=== PATIENT | female | born 1940 | race Caucasian/White ===

== ENCOUNTER 2019-03-09 00:12 | Inpatient (IN) | payer MEDICARE, BC ==
[2019-03-09] MEDS ORDERED: SODIUM CHLORIDE 3%(HYPERTONIC) 500 ML IV SCH (00:30)
--- NOTE | 2019-03-09 00:32 | ED ---
Seizure HPI - General Chief Complaint: Seizure Stated Complaint: Seizure Time Seen by Provider: 03/09/19 00:27 Source: patient Limitations: no limitations - History of Present Illness Initial Comments: Marisol is an 78-year-old female who is transferred to our facility from outside [facility] for further management of onset seizures due to hyponatremia. Per the family the patient had some dental work on Sunday of this week. She was given some narcotic pain medications. Since that time she has not been eating or drinking well she felt like the necrotic sore making her very n auseated and she was still having some dental discomfort. Family reports that they were concerned that she was getting dehydrated Sunday morning she began acting bizarrely. Her convinced her after 3 hours of discussion to go to the emergency department for evaluation. Upon arrival at the emergency department the patient was very disoriented and confused. Lab values at that point revealed that the patient had a sodium of 108. She has no history of low sodium or any kidney problems in the past. While at the outside emergency Department patient was noted to have an episode of tonic-clonic jerking. This resolved spontaneously. Patient was initiated on 3% normal saline at 30 mil liliters per hour and transferred to our facility for further evaluation. - Related Data Allergies Allergy/AdvReac Type Severity Reaction Status Date / Time No Known Allergies Allergy Verified 03/09/19 01:52 Review of Systems ROS Statement: Those systems with pertinent positive or pertinent negative responses have been documented in the HPI. ROS Other: All systems not noted in ROS Statement are negative. Past Medical History Additional Past Medical History / Comment(s): UNKNOwn patient is not a good Historian Additional Past Surgical History / Comment(s): UNknown Smoking Status: Unknown if ever smoked Past Alcohol Use History: None Reported Past Drug Use History: None Reported General Exam - General Exam Comments Initial Comments: Physical Exam GENERAL: Chronically ill-appearing elderly female appears dehydrated altered HENT: Normocephalic, Atraumatic. EYES: PERRL, EOMI PULMONARY: Unlabored respirations CARDIOVASCULAR: RRR ABDOMEN: Soft and nontender with normal bowel sounds. SKIN: Dry : Normal external genitalia Gregory catheter in place NEUROLOGIC: Alert and oriented 0, moaning, did have some focal shaking of the right arm and staring spells concerning for seizure-like activity MUSCULOSKELETAL: atrophy PSYCHIATRIC: Unable to assess Limitations: no limitations Course Vital Signs 03/09/19 03/09/19 03/09/19 00:22 00:41 00:50 Temperature Pulse Rate 68 71 Respiratory 16 Rate Blood Pressure 123/79 137/90 O2 Sat by Pulse 94 L Oximetry 03/09/19 03/09/19 03/09/19 01:10 01:20 01:40 Temperature Pulse Rate 67 75 73 Respiratory Rate Blood Pressure 109/66 91/63 120/71 O2 Sat by Pulse 98 Oximetry 03/09/19 03/09/19 03/09/19 01:50 02:01 02:10 Temperature 98.0 F Pulse Rate 79 85 74 Respiratory 18 Rate Blood Pressure 123/72 127/74 118/69 O2 Sat by Pulse 85 L 95 95 Oximetry 03/09/19 03/09/19 03/09/19 02:20 02:40 02:50 Temperature 98.6 F Pulse Rate 69 65 64 Respiratory 16 Rate Blood Pressure 119/72 113/69 110/71 O2 Sat by Pulse 97 100 100 Oximetry 03/09/19 03/09/19 03:10 03:20 Temperature Pulse Rate 70 Respiratory 16 Rate Blood Pressure 105/69 105/69 O2 Sat by Pulse 100 Oximetry Medical Decision Making - Medical Decision Making Patient care was discussed with transferring physician prior to transfer, patient care was also discussed with physician assistant primary care Dr. Carson who recommends patient be initiated on 3% hypertonic saline at a rate of 30/h this was started prior to transfer. Patient was seen and evaluated immediately upon arrival to the emergency department. Patient had another tonic-clonic seizure in route to the hospital and did have some focal shaking of the right arm and some staring off during evaluation. Repeat labs were ordered which revealed sodium has improved to 113, these results were discussed with Dr. Carson who recommends discontinuation of the hypertonic saline, goal sodium is only 114 to 1:15 by morning. He recommends normal saline at 70 mL per hour. Patient's lactic acid also noted be mildly elevated at 3.6, we will continue to trend this Lab results were discussed with the family at bedside. They confirm that the patient would be agreeable to IV fluids, IV access and medications as needed however the patient has made it clear to them in the past that she would not want any resuscitative measures and the patient is to be made DO NOT RESUSCITATE. Patient with waxing and waning mental status. No further definitive seizure activity. Around 4:30 AM patient was able to state her name and states said she seemed like she was in the hospital. However she remained delirious. Patient care was discussed with coding support specialist Dr. Atwood who agrees with the plan for admission to the ICU for hyponatremia and seizures with a consult to Dr. Carson nephrology. - Lab Data Result diagrams: 03/09/19 00:39 03/09/19 00:39 Lab Results 03/09/19 03/09/19 03/09/19 Range/Units 00:39 00:39 00:39 WBC 4.2 (3.8-10.6) k/uL RBC 4.95 (3.80-5.40) m/uL Hgb 15.2 (11.4-16.0) gm/dL Hct 42.2 (34.0-46.0) % MCV 85.3 (80.0-100.0) fL MCH 30.8 (25.0-35.0) pg MCHC 36.1 (31.0-37.0) g/dL RDW 15.3 (11.5-15.5) % Plt Count 140 L (150-450) k/uL Neutrophils % (Manual) 78 % Band Neutrophils % 4 % Lymphocytes % (Manual) 11 % Monocytes % (Manual) 7 % Neutrophils # (Manual) 3.40 (1.3-7.7) k/uL Lymphocytes # (Manual) 0.46 L (1.0-4.8) k/uL Monocytes # (Manual) 0.29 (0-1.0) k/uL Nucleated RBCs 0 (0-0) /100 WBC Manual Slide Review Performed Hyperchromasia Marked Sodium 113 L* (137-145) mmol/L Potassium 4.2 (3.5-5.1) mmol/L Chloride 79 L (98-107) mmol/L Carbon Dioxide 24 (22-30) mmol/L Anion Gap 10 mmol/L BUN 9 (7-17) mg/dL Creatinine 0.44 L (0.52-1.04) mg/dL Est GFR (CKD-EPI)AfAm >90 (>60 ml/min/1.73 sqM) Est GFR (CKD-EPI)NonAf >90 (>60 ml/min/1.73 sqM) Glucose 146 H (74-99) mg/dL POC Glucose (mg/dL) (75-99) mg/dL POC Glu Culinary Arts Instructor ID Lactic Ac Sepsis Rflx Plasma Lactic Acid Yordan 3.6 H* (0.7-2.0) mmol/L Calcium 6.5 L (8.4-10.2) mg/dL Total Bilirubin 3.7 H (0.2-1.3) mg/dL AST 67 H (14-36) U/L ALT 46 (9-52) U/L Alkaline Phosphatase 73 (38-126) U/L Total Protein 5.4 L (6.3-8.2) g/dL Albumin 2.9 L (3.5-5.0) g/dL 03/09/19 03/09/19 03/09/19 Range/Units 00:46 01:11 04:16 WBC (3.8-10.6) k/uL RBC (3.80-5.40) m/uL Hgb (11.4-16.0) gm/dL Hct (34.0-46.0) % MCV (80.0-100.0) fL MCH (25.0-35.0) pg MCHC (31.0-37.0) g/dL RDW (11.5-15.5) % Plt Count (150-450) k/uL Neutrophils % (Manual) % Band Neutrophils % % Lymphocytes % (Manual) % Monocytes % (Manual) % Neutrophils # (Manual) (1.3-7.7) k/uL Lymphocytes # (Manual) (1.0-4.8) k/uL Monocytes # (Manual) (0-1.0) k/uL Nucleated RBCs (0-0) /100 WBC Manual Slide Review Hyperchromasia Sodium (137-145) mmol/L Potassium (3.5-5.1) mmol/L Chloride (98-107) mmol/L Carbon Dioxide (22-30) mmol/L Anion Gap mmol/L BUN (7-17) mg/dL Creatinine (0.52-1.04) mg/dL Est GFR (CKD-EPI)AfAm (>60 ml/min/1.73 sqM) Est GFR (CKD-EPI)NonAf (>60 ml/min/1.73 sqM) Glucose (74-99) mg/dL POC Glucose (mg/dL) 194 H (75-99) mg/dL POC Glu Culinary Arts Instructor ID Bernarda Castellanos Ac Sepsis Rflx Y Plasma Lactic Acid Yordan 1.6 (0.7-2.0) mmol/L Calcium (8.4-10.2) mg/dL Total Bilirubin (0.2-1.3) mg/dL AST (14-36) U/L ALT (9-52) U/L Alkaline Phosphatase (38-126) U/L Total Protein (6.3-8.2) g/dL Albumin (3.5-5.0) g/dL Critical Care Time Critical Care Time: Yes Total Critical Care Time: 60 Critical Care Time: Critical Care Time Critical care time was exclusive of separately billable procedures and treating other patients and teaching time. Critical care was necessary to treat or prevent imminent or life-threatening deterioration. Given the critical condition in which the patient arrived, the patient was immediately assessed by myself and the nurse, and cardiac monitoring initiated due to the potential for rapid decompensation of the patient's clinical condition. During the course of the patients stay, I spent a considerable amount of time at the bedside performing serial re-evaluations of the patient's hemodynamic and clinical status because of the recognized potential threat to life or limb in this condition. I then had a chance to review not only all of the available current laboratory and radiographic studies obtained today, but I also reviewed old records available to me at the time. Additionally, any ancillary information available including customer sales consultant records were reviewed. Sequential vital signs were obtained. Disposition Clinical Impression: New onset seizure, Hyponatremia, Dehydration, Lactic acidosis Disposition: ADMITTED IP TO THIS [facility] Condition: Critical Is patient prescribed a controlled substance at d/c from ED?: No Referrals: Derek Burnette MD [Primary Care Provider] - 1-2 days
[2019-03-09 00:48] LABS: Glucose,Whole Blood 194 mg/dL (75-99)
[2019-03-09 00:49] LABS: HCT 42.2 % (34.0-46.0); HGB 15.2 gm/dL (11.4-16.0); Hyperchromasia Marked; MCH 30.8 pg (25.0-35.0); MCHC 36.1 g/dL (31.0-37.0); MCV 85.3 fL (80.0-100.0); Mean Platelet Volume 7.5; Platelet Count 140 k/uL (150-450); RBC 4.95 m/uL (3.80-5.40); RDW 15.3 % (11.5-15.5); WBC 4.2 k/uL (3.8-10.6)
[2019-03-09] MEDS: SODIUM CHLORIDE 0.9% 1,000 ML IV SCH ×2 (01:00→06:54)
[2019-03-09 01:02] LABS: ALT 46 U/L (9-52); AST 67 U/L (14-36); African American GFR (CKD) >90 (>60 ml/min/1.73 sqM); Albumin 2.9 g/dL (3.5-5.0); Alkaline Phosphatase 73 U/L (38-126); Anion Gap 10 mmol/L; Blood Urea Nitrogen 9 mg/dL (7-17); Calcium 6.5 mg/dL (8.4-10.2); Carbon Dioxide 24 mmol/L (22-30); Chloride 79 mmol/L (98-107); Glucose 146 mg/dL (74-99); Potassium 4.2 mmol/L (3.5-5.1); Total Bilirubin 3.7 mg/dL (0.2-1.3); Total Protein 5.4 g/dL (6.3-8.2)
[2019-03-09 01:11] LABS: Sodium 113 mmol/L (137-145)
[2019-03-09 01:19] LABS: Band Neutrophils % 4 %; Lymphocytes # (M) 0.46 k/uL (1.0-4.8); Monocytes # (M) 0.29 k/uL (0-1.0); Neutrophils % (M) 78 %; Nucleated Red Blood Cells 0 /100 WBC (0-0); Total Cells Counted 100
[2019-03-09] MEDS ORDERED: NALOXONE 0.4 MG/ML 1 ML VIAL IV PRN (05:12)
[2019-03-09] MEDS ORDERED: LORazepam 2 MG/ML INJ IV PRN (05:12)
[2019-03-09 05:49] LABS: African American GFR (CKD) >90 (>60 ml/min/1.73 sqM); Anion Gap 10 mmol/L; Blood Urea Nitrogen 11 mg/dL (7-17); Calcium 7.3 mg/dL (8.4-10.2); Carbon Dioxide 27 mmol/L (22-30); Glucose 124 mg/dL (74-99); Potassium 2.8 mmol/L (3.5-5.1)
[2019-03-09 06:20] LABS: Chloride 72 mmol/L (98-107); Sodium 109 mmol/L (137-145)
[2019-03-09] MEDS ORDERED: Potassium Replacement Protocol 1 EACH MISC MISCELLANE PRN (06:21)
[2019-03-09] MEDS: SODIUM CHLORIDE 3%(HYPERTONIC) 500 ML IV SCH (06:35)
[2019-03-09 06:40] LABS: Glucose,Whole Blood 129 mg/dL (75-99)
[2019-03-09] MEDS: POTASSIUM CHLORIDE 10 MEQ in WATER FOR INJECTION 1 100ML.BAG IVPB SCH ×6 (06:46→16:41)
--- NOTE | 2019-03-09 08:25 | XR ---
EXAMINATION TYPE: XR chest 1V portable DATE OF EXAM: 03/09/2019 HISTORY: r/o pneumonia. REFERENCE: NONE. FINDINGS: There is multichamber cardiac enlargement. The lungs are clear. Pleural spaces are clear. IMPRESSION: CARDIOMEGALY.
--- NOTE | 2019-03-09 09:36 | CONS ---
CONSULTATION PULMONARY/CRITICAL CARE CONSULTATION: DATE OF CONSULTATION: 03/09/2019 This is an 78-year-old female who was transferred from [facility]. She apparently came in for hyponatremia and seizures. The patient apparently had some dental work this past week. She was given some narcotic pain medications. Subsequent to that, she had not been eating or drinking particularly well. She apparently was having some pain in the oral cavity. Anyway, the patient apparently became very dehydrated and on Sunday she started acting very differently. After period of time the patient was taken into the emergency room. She was found to apparently have profound hyponatremia with a sodium of 108. In addition, she apparently was noted to have some tonic-clonic jerking. The patient was transferred here and placed on 3% saline. Nephrology has been consulted. Her past medical history is not clear but she apparently does have a history of atrial fibrillation and was on a factor Xa inhibitor. Currently, she is on 0.5 L in nasal cannula. Her IV is 3% saline at 30 mL an hour. I did ask for a chest x-ray since one was not available to us here. Currently, she is resting comfortably in bed. She is verbal. She is able to respond appropriately. There has been no further seizure or seizure-like activity. The patient really has no particular complaints. She looks reasonably comfortable. Her past medical and surgical history is not clear. Social history is not known. Family and occupational history is not known. We will see if we can track down this information. Again, there is a vague history of atrial fibrillation and apparently she at least at one time was on a factor Xa inhibitor. REVIEW OF SYSTEMS: CONSTITUTIONAL: Weakness. NEUROLOGIC: Negative with no further seizure activity. HEENT: Negative. CARDIOVASCULAR: Negative. PULMONARY: Negative. GI: Negative. : Negative. RHEUMATOLOGIC: Negative. IMMUNOLOGIC: Negative. ENDOCRINOLOGIC: Negative. DERMATOLOGIC: Negative. PHYSICAL EXAMINATION: Current vital signs are reviewed. Temperature 97.5, heart rate 78, respiratory rate 20, blood pressure 125/89, mean 101, saturation 95% on 1.5 L. Appears in no acute distress. HEENT examination is grossly unremarkable. Mucous membranes are dry. Supplemental oxygen noted. NECK: Supple. Full range of motion. No adenopathy. CARDIOVASCULAR examination reveals a somewhat irregular rhythm and rate. It appears that she probably has a slow atrial fibrillation. Heart rate about 50 beats per minute. LUNGS: Reveal a few scattered rhonchi. No wheezes or crackles. ABDOMEN: Soft. Bowel sounds are noted. EXTREMITIES: Intact. No cyanosis, clubbing, or edema. Skin without rash. NEUROLOGIC examination is brief but nonfocal. LABS: Reviewed. Her white count is 4.2, hemoglobin 15.2, hematocrit 42.2, platelet count 140,000. Sodium is up to 109, potassium 2.8, chloride 72, CO2 is 27. BUN and creatinine were 11 and 0.4. Calcium 7.3, total bilirubin 3.7, AST 67, ALT 46, albumin 2.9. A chest x-ray was done this morning. It shows only cardiomegaly. MEDICATIONS: Reviewed. The only thing she is currently on is Ativan p.r.n., Narcan, potassium replacement, and 3% saline at 30 mL an hour. We have an updated list of home medications including penicillin V, potassium, losartan/HCTZ, DuoNeb, digoxin, Pulmicort, and Eliquis. Hence, based on these medications. I would suspect that she probably has some underlying COPD, probably atrial fibrillation and also hypertension. ASSESSMENT: 1. Profound hyponatremia with seizure or seizure-like activity, resolved. 2. History of chronic atrial fibrillation, currently maintained on digoxin and Eliquis. 3. Possible chronic obstructive pulmonary disease from previous tobacco use. 4. History of hypertension. 5. Cardiomegaly seen on chest x-ray. 6. Profound electrolyte disturbances including hyponatremia and hypokalemia. 7. Hyperbilirubinemia. PLAN: The patient is currently receiving nasal O2 and 3% saline. Nephrology has been consulted and has seen the patient. We will get her back on her regular medications. No additional recommendations are made. Prognosis is guarded. She is a DNR. We will continue to follow. MMODL / IJN: [id number] /
[2019-03-09] MEDS ORDERED: IPRATROPIUM-ALBUTEROL 3 ML NEB INHALATION PRN (09:49)
--- NOTE | 2019-03-09 09:57 | P.NPCON ---
History of Present Illness - Reason for Consult hyponatremia - History of Present Illness Reason for consultation: Hyponatremia History of present illness: Patient is a 78-year-old female seen in renal consultation for hyponatremia. Patient presented to [facility] yesterday afternoon and her sodium level was noted to be low at 108. Patient was given normal saline and subsequently transferred to [facility]. In the emergency room here, her sodium levels up to 113. She was subsequently started on normal saline was down to 109. Therefore 3% was restarted. Patient was also noted to have seizure-like activity at [facility] as well as in the emergency room here. Currently she is awake and alert. She doesn't feel well. Denies vomiting or diarrhea. Oral intake has been quite poor the last few days. Patient had recent dental work done and has not been able to eat much due to pain. It is noted that she was taking Hyzaar at home. She denies drinking excessive amounts of water. GFR is at baseline. No history of kidney disease. Hemodynamically stable. Urine output last hour was 100 mL. Vital signs are stable. General: The patient appeared well nourished and normally developed. HEENT: Head exam is unremarkable. Neck is without jugular venous distension. LUNGS: Lungs are clear to auscultation and percussion. Breath sounds decreased. HEART: Rate and Rhythm are regular. First and second heart sounds normal. No murmurs, rubs or gallops. ABDOMEN: Abdominal exam reveals normal bowel sounds. Non-tender and non- distended. No evidence of peritonitis. EXTREMITITES: No clubbing, cyanosis, or edema. Past Medical History Additional Past Medical History / Comment(s): UNKNOwn patient is not a good Historian Additional Past Surgical History / Comment(s): UNknown Smoking Status: Unknown if ever smoked Past Alcohol Use History: None Reported Past Drug Use History: None Reported Medications and Allergies Home Medications Medication Instructions Recorded Confirmed Type Apixaban [Eliquis] 5 mg PO BID 03/09/19 03/09/19 History Budesonide [Pulmicort] 0.5 mg INHALATION RT-BID 03/09/19 03/09/19 History Digoxin [Lanoxin] 125 mcg PO DAILY 03/09/19 03/09/19 History Ipratropium-Albuterol Nebulize 3 ml INHALATION RT-BID 03/09/19 03/09/19 History [Duoneb 0.5 mg-3 mg/3 ml Soln] Losartan-Hctz 50-12.5 mg [Hyzaar 1 tab PO DAILY 03/09/19 03/09/19 History 50-12.5] Penicillin V Potassium [Pen Vee K] 500 mg PO QID 03/09/19 03/09/19 History Allergies Allergy/AdvReac Type Severity Reaction Status Date / Time No Known Allergies Allergy Verified 03/09/19 08:51 Physical Exam Vitals: Vital Signs Temp Pulse Resp BP Pulse Ox 03/09/19 08:30 78 20 125/89 95 03/09/19 08:00 97.5 F L 51 L 21 126/75 92 L 03/09/19 07:30 42 L 20 136/82 95 03/09/19 07:01 22 03/09/19 07:00 59 L 23 136/82 96 03/09/19 06:50 58 L 25 H 150/107 95 03/09/19 06:40 69 25 H 03/09/19 06:30 97.6 F 62 22 105/69 95 03/09/19 05:10 98.0 F 65 96 H 96/65 03/09/19 04:50 64 107/70 03/09/19 04:40 74 123/82 03/09/19 04:20 130/86 03/09/19 04:10 136/84 03/09/19 03:50 147/102 97 03/09/19 03:40 105/69 03/09/19 03:20 70 16 105/69 100 03/09/19 03:10 105/69 03/09/19 02:50 98.6 F 64 16 110/71 100 03/09/19 02:40 65 113/69 100 03/09/19 02:20 69 119/72 97 03/09/19 02:10 74 118/69 95 03/09/19 02:01 98.0 F 85 18 127/74 95 03/09/19 01:50 79 123/72 85 L 03/09/19 01:40 73 120/71 98 03/09/19 01:20 75 91/63 03/09/19 01:10 67 109/66 03/09/19 00:50 137/90 03/09/19 00:41 71 03/09/19 00:22 68 16 123/79 94 L Intake and Output 03/08/19 03/09/19 03/09/19 22:59 06:59 14:59 Intake Total 260 Output Total 400 Balance -140 Intake: IV 260 Potassium Chloride 10 meq 200 In Water For Injection 1 100ml.bag @ 100 mls/hr IVPB Q1HR LAY Rx#: [id number] Sodium Chloride 3%( 60 Hypertonic) 500 ml @ 30 mls/hr IV .[id number] [facility] Rx #:[id number] Output: Urine 400 Other: Voiding Method Indwelling Catheter Weight 68.039 kg Results - Lab Results Most recent lab results Calcium 7.3 mg/dL (8.4-10.2) L 03/09/19 05:29 03/09/19 00:39 03/09/19 05:29 Assessment and Plan Plan: Assessment: 1. Symptomatic hyponatremia with sodium level of 108 on initial admission at [facility] yesterday. Sodium level dropped to normal saline last night and was 109 this morning. Patient appears euvolemic at this time. 2. Seizure due to hyponatremia. Resolved. 3. Hypokalemia from poor oral intake and renal losses. 4. Benign hypertension. Controlled. 5. History of A. fib. Maintained on anticoagulation. Plan: Maintain 3% at 30 mL an hour. Recheck sodium level at 11 AM. Potassium is being replaced. Avoid thiazide diuretics. Check serum osmolality, urine osmolality and urine sodium. Check TSH and uric acid level. Avoid rapid correction of hyponatremia. Thank you for the consultation. I will continue to follow the patient with you during her hospital stay.
[2019-03-09] MEDS ORDERED: LOSARTAN 50 MG TAB PO SCH (10:00)
[2019-03-09] MEDS ORDERED: ACETAMINOPHEN TAB 325 MG TAB PO PRN (10:01)
[2019-03-09] MEDS: APIXABAN 5 MG TAB PO SCH (10:27)
[2019-03-09] MEDS: APIXABAN 2.5 MG TABLET PO SCH ×2 (10:36→20:01)
[2019-03-09 11:16] LABS: African American GFR (CKD) >90 (>60 ml/min/1.73 sqM); Anion Gap 10 mmol/L; Blood Urea Nitrogen 10 mg/dL (7-17); Calcium 7.5 mg/dL (8.4-10.2); Carbon Dioxide 28 mmol/L (22-30); Glucose 119 mg/dL (74-99); Potassium 3.3 mmol/L (3.5-5.1)
[2019-03-09 11:22] LABS: Chloride 73 mmol/L (98-107); Sodium 111 mmol/L (137-145)
[2019-03-09] MEDS: IPRATROPIUM-ALBUTEROL 3 ML NEB INHALATION SCH ×2 (12:53→20:01)
[2019-03-09 14:33] LABS: African American GFR (CKD) >90 (>60 ml/min/1.73 sqM); Anion Gap 9 mmol/L; Blood Urea Nitrogen 10 mg/dL (7-17); Calcium 7.2 mg/dL (8.4-10.2); Carbon Dioxide 26 mmol/L (22-30); Chloride 74 mmol/L (98-107); Glucose 171 mg/dL (74-99); Potassium 3.5 mmol/L (3.5-5.1); Sodium 109 mmol/L (137-145)
[2019-03-09 18:44] LABS: African American GFR (CKD) >90 (>60 ml/min/1.73 sqM); Anion Gap 9 mmol/L; Blood Urea Nitrogen 8 mg/dL (7-17); Calcium 7.3 mg/dL (8.4-10.2); Carbon Dioxide 24 mmol/L (22-30); Chloride 78 mmol/L (98-107); Glucose 153 mg/dL (74-99); Potassium 3.6 mmol/L (3.5-5.1)
[2019-03-09 18:54] LABS: Sodium 111 mmol/L (137-145)
[2019-03-09] MEDS ORDERED: LOSARTAN 50 MG TAB PO STA (18:56)
--- NOTE | 2019-03-09 20:14 | P.HPIM ---
History of Present Illness H&P Date: 03/09/19 Chief Complaint: Seizure breakthrough This is 78 years old female who presented to the emergency department for altered mental status. Patient had dental workup on Sunday and was discharged with penicillin and narcotic prescription for pain control patient started being lethargic and refusing meals and became extremely dehydrated and on Sunday morning her decided to bring her into [place] emergency department where patient was found to have sodium of 111 and patient was started on normal saline that caused her sodium dropped to 108 patient during evaluation there looked witnessed tonic-clonic seizure with jerking movements but no bowel or bladder incontinence according to the patient was still lethargic and confused and had a son who was not there but was informed by his father who brought her into the emergency department. Patient currently is slightly confused in the intensive care unit still with low appetite but following commands and answering questions appropriately with yes or no. Patient was started on 3% infusion and placed in the intensive care unit and nephrology consult was obtained along with critical care consult sodium slightly improved currently at 111 and patient seems to be stable. Patient is denying any pain at this point Review of Systems All 14 systems reviewed and negative except as above but patient is poor historian Past Medical History Past Medical History: Atrial Fibrillation, Asthma, GERD/Reflux, Hypertension, Osteoarthritis (OA), Respiratory Disorder Additional Past Medical History / Comment(s): Chronic cough History of Any Multi-Drug Resistant Organisms: None Reported Past Surgical History: Ear Surgery Additional Past Surgical History / Comment(s): bilateral cateract surgery, tooth extraction Past Anesthesia/Blood Transfusion Reactions: No Reported Reaction Past Psychological History: No Psychological Hx Reported Smoking Status: Never smoker Past Alcohol Use History: None Reported Past Drug Use History: None Reported - Past Family History Mother Family Medical History: CVA/TIA, Hypertension Father Family Medical History: CVA/TIA Medications and Allergies Home Medications Medication Instructions Recorded Confirmed Type Apixaban [Eliquis] 2.5 mg PO BID 03/09/19 03/09/19 History Budesonide [Pulmicort] 0.5 mg INHALATION RT-BID 03/09/19 03/09/19 History Digoxin [Lanoxin] 125 mcg PO DAILY 03/09/19 03/09/19 History Ipratropium-Albuterol Nebulize 3 ml INHALATION RT-BID 03/09/19 03/09/19 History [Duoneb 0.5 mg-3 mg/3 ml Soln] Losartan-Hctz 50-12.5 mg [Hyzaar 1 tab PO DAILY 03/09/19 03/09/19 History 50-12.5] Penicillin V Potassium [Pen Vee K] 500 mg PO QID 03/09/19 03/09/19 History Allergies Allergy/AdvReac Type Severity Reaction Status Date / Time No Known Allergies Allergy Verified 03/09/19 08:51 Physical Exam Vitals: Vital Signs Temp Pulse Resp BP Pulse Ox 03/09/19 20:05 95 03/09/19 20:01 72 03/09/19 19:00 76 23 166/102 94 L 03/09/19 18:30 74 23 165/106 96 03/09/19 18:00 79 23 165/100 96 03/09/19 17:30 72 25 H 170/97 97 03/09/19 17:00 67 25 H 151/103 96 03/09/19 16:30 80 24 159/96 96 03/09/19 16:00 97.9 F 66 23 154/91 97 03/09/19 15:30 67 26 H 159/97 97 03/09/19 15:00 77 22 151/102 96 03/09/19 14:30 65 22 142/83 95 03/09/19 14:00 63 23 159/90 94 L 03/09/19 13:30 70 22 157/92 95 03/09/19 13:07 75 03/09/19 13:00 59 L 18 146/101 99 03/09/19 12:58 97 03/09/19 12:57 64 03/09/19 12:30 65 20 162/105 97 03/09/19 12:00 97.7 F 64 22 135/110 96 03/09/19 11:30 66 19 149/92 95 03/09/19 11:00 67 22 153/89 96 03/09/19 10:30 76 20 144/95 95 03/09/19 10:00 54 L 21 151/86 96 03/09/19 09:30 64 22 121/78 95 03/09/19 09:00 61 20 161/81 96 03/09/19 08:30 78 20 125/89 95 03/09/19 08:00 97.5 F L 51 L 21 126/75 92 L 03/09/19 07:30 42 L 20 136/82 95 03/09/19 07:01 22 03/09/19 07:00 59 L 23 136/82 96 03/09/19 06:50 58 L 25 H 150/107 95 03/09/19 06:40 69 25 H 03/09/19 06:30 97.6 F 62 22 105/69 95 03/09/19 05:10 98.0 F 65 96 H 96/65 03/09/19 04:50 64 107/70 03/09/19 04:40 74 123/82 03/09/19 04:20 130/86 03/09/19 04:10 136/84 03/09/19 03:50 147/102 97 03/09/19 03:40 105/69 03/09/19 03:20 70 16 105/69 100 03/09/19 03:10 105/69 03/09/19 02:50 98.6 F 64 16 110/71 100 03/09/19 02:40 65 113/69 100 03/09/19 02:20 69 119/72 97 03/09/19 02:10 74 118/69 95 03/09/19 02:01 98.0 F 85 18 127/74 95 03/09/19 01:50 79 123/72 85 L 03/09/19 01:40 73 120/71 98 03/09/19 01:20 75 91/63 03/09/19 01:10 67 109/66 03/09/19 00:50 137/90 03/09/19 00:41 71 03/09/19 00:22 68 16 123/79 94 L Intake and Output 03/09/19 03/09/19 03/09/19 06:59 14:59 22:59 Intake Total 1700 820 Output Total 725 870 Balance 975 -50 Intake: IV 740 340 Potassium Chloride 10 meq 500 100 In Water For Injection 1 100ml.bag @ 100 mls/hr IVPB Q1HR [facility] Rx#: [id number] Sodium Chloride 3%( 240 240 Hypertonic) 500 ml @ 40 mls/hr IV .[id number] [facility] Rx #:[id number] Oral 960 480 Output: Urine 725 870 Other: Voiding Method Indwelling Catheter Indwelling Catheter Weight 68.039 kg Physical exam HEENT atraumatic normocephalic. PERRLA Lungs clear to auscultation bilaterally Heart normal S1-S2 Abdomen soft no tenderness plus falls. 4 quadrant Lower extremity no edema Skin no new rash Psych alert and oriented 2 only Neuro no focal deficit Results CBC & Chem 7: 03/09/19 00:39 03/09/19 18:21 Labs: Abnormal Lab Results - Last 24 Hours (Table) 03/09/19 03/09/19 03/09/19 Range/Units 00:39 00:39 00:39 Plt Count 140 L (150-450) k/uL Lymphocytes # (Manual) 0.46 L (1.0-4.8) k/uL Sodium 113 L* (137-145) mmol/L Potassium (3.5-5.1) mmol/L Chloride 79 L (98-107) mmol/L Creatinine 0.44 L (0.52-1.04) mg/dL Glucose 146 H (74-99) mg/dL POC Glucose (mg/dL) (75-99) mg/dL Osmolality (280-301) mosm/kg Plasma Lactic Acid Yordan 3.6 H* (0.7-2.0) mmol/L Uric Acid (3.7-7.4) mg/dL Calcium 6.5 L (8.4-10.2) mg/dL Total Bilirubin 3.7 H (0.2-1.3) mg/dL AST 67 H (14-36) U/L Total Protein 5.4 L (6.3-8.2) g/dL Albumin 2.9 L (3.5-5.0) g/dL 03/09/19 03/09/19 03/09/19 Range/Units 00:46 05:29 06:39 Plt Count (150-450) k/uL Lymphocytes # (Manual) (1.0-4.8) k/uL Sodium 109 L* (137-145) mmol/L Potassium 2.8 L (3.5-5.1) mmol/L Chloride 72 L* (98-107) mmol/L Creatinine 0.40 L (0.52-1.04) mg/dL Glucose 124 H (74-99) mg/dL POC Glucose (mg/dL) 194 H 129 H (75-99) mg/dL Osmolality (280-301) mosm/kg Plasma Lactic Acid Yordan (0.7-2.0) mmol/L Uric Acid (3.7-7.4) mg/dL Calcium 7.3 L (8.4-10.2) mg/dL Total Bilirubin (0.2-1.3) mg/dL AST (14-36) U/L Total Protein (6.3-8.2) g/dL Albumin (3.5-5.0) g/dL 03/09/19 03/09/19 03/09/19 Range/Units 10:39 14:06 18:21 Plt Count (150-450) k/uL Lymphocytes # (Manual) (1.0-4.8) k/uL Sodium 111 L* 109 L* 111 L* (137-145) mmol/L Potassium 3.3 L (3.5-5.1) mmol/L Chloride 73 L* 74 L* 78 L (98-107) mmol/L Creatinine 0.42 L 0.39 L (0.52-1.04) mg/dL Glucose 119 H 171 H 153 H (74-99) mg/dL POC Glucose (mg/dL) (75-99) mg/dL Osmolality 227 L* (280-301) mosm/kg Plasma Lactic Acid Yordan (0.7-2.0) mmol/L Uric Acid 2.0 L (3.7-7.4) mg/dL Calcium 7.5 L 7.2 L 7.3 L (8.4-10.2) mg/dL Total Bilirubin (0.2-1.3) mg/dL AST (14-36) U/L Total Protein (6.3-8.2) g/dL Albumin (3.5-5.0) g/dL Thrombosis Risk Factor Assmnt - Choose All That Apply Each Risk Factor Represents 3 Points: Age 75 years or older Thrombosis Risk Factor Assessment Total Risk Factor Score: 3 Thrombosis Risk Factor Assessment Level: Moderate Risk Assessment and Plan Assessment: 1. Acute hyponatremia, critical. 2. Seizure breakthrough likely secondary to #1. 3. Altered mental status metabolic in nature. 4. Severe dehydration. 5. Debility and weakness. 6. Atrial fibrillation. 7. Hypertension. 8. GERD. 9. Asthma moderate persistent. 10. Anxiety. Plan discussed with job service consultant on the case where we would like to continue with 3% infusion avoid rapid correction that was discussed with nephrology and nursing staff will repeat sodium in 3 hours and follow-up with nephrology recommendation, we'll resume home medication at this point but I would like to hold hydrochlorothiazide increase losartan to 100 mg for better control on blood pressure as family stated that her blood pressure has been running high and I advised the family to avoid hydrochlorothiazide in the future. I would like to discontinue penicillin at this point as patient have no evidence of infection. I would like to hold digoxin until tomorrow morning after checking level of digoxin and then reintroduce it based on clinical progress as heart rate is currently well controlled. I would like to consider neurology consult that showed patient experienced further seizures. I would like to have physical and if the patient on therapy to evaluate the patient once patient is more stable a nd out of the critical care unit. I would like to offer breathing treatments on scheduled and as needed and encourage spirometer use. Would resume anticoagulation in the form of factor X inhibitors as no evidence of bleed. Prognosis remained guarded at this point.
[2019-03-09] MEDS ORDERED: POTASSIUM CHLORIDE ER 20 MEQ TAB.ER PO SCH (21:00)
[2019-03-10] MEDS: SODIUM CHLORIDE 3%(HYPERTONIC) 500 ML IV SCH
[2019-03-10 01:30] LABS: Potassium 3.3 mmol/L (3.5-5.1)
[2019-03-10] MEDS: POTASSIUM CHLORIDE ER 20 MEQ TAB.ER PO SCH ×2 (02:29→03:56)
[2019-03-10 04:31] LABS: Digoxin 0.4 ng/mL
--- NOTE | 2019-03-10 07:21 | XR ---
EXAMINATION TYPE: XR chest 1V portable DATE OF EXAM: 03/10/2019 COMPARISON: 03/09/2019 HISTORY: Shortness of breath and ICU management TECHNIQUE: Single frontal view of the chest is obtained. FINDINGS: There is a markedly enlarged cardiac mediastinal silhouette. Tenting the diaphragm in the retrocardiac airspace likely relates to minimal left basilar atelectasis given the mass effect. Pulmo nary hyperinflation and biapical lucency represents underlying COPD. There is generalized osseous dem ineralization present. No acute osseous pathology is seen. No pneumothorax is appreciated nor sizable pleural effusion. IMPRESSION: 1. Marked cardiomegaly. Echocardiogram could assess for pericardial effusion. 2. COPD. 3. Minimal left basilar atelectasis.
[2019-03-10] MEDS: APIXABAN 2.5 MG TABLET PO SCH ×2 (08:20→22:40)
[2019-03-10] MEDS: LOSARTAN 50 MG TAB PO SCH (08:20)
[2019-03-10] MEDS: IPRATROPIUM-ALBUTEROL 3 ML NEB INHALATION SCH ×3 (08:35→19:04)
[2019-03-10 08:53] LABS: African American GFR (CKD) >90 (>60 ml/min/1.73 sqM); Anion Gap 6 mmol/L; Blood Urea Nitrogen 8 mg/dL (7-17); Calcium 7.7 mg/dL (8.4-10.2); Carbon Dioxide 25 mmol/L (22-30); Chloride 90 mmol/L (98-107); Glucose 114 mg/dL (74-99); Potassium 3.9 mmol/L (3.5-5.1); Sodium 121 mmol/L (137-145)
[2019-03-10 13:19] LABS: Bilirubin, Delta 0.6 mg/dL (0.0-0.2); Bilirubin,Unconjugated 3.1 mg/dL (0.0-1.1); Magnesium 1.8 mg/dL (1.6-2.3); Total Bilirubin 3.7 mg/dL (0.2-1.3)
--- NOTE | 2019-03-10 15:52 | PN ---
PROGRESS NOTE The patient is seen for followup for hyponatremia. Her serum sodium was 113 on admission. It has come up to 121. 3% saline has been discontinued. The patient did have a seizure. Currently, she states she feels fair, she is mildly short of breath. No further seizures noted. Urine osmolality was 489 and random urine sodium was 12. The patient is eating. PHYSICAL EXAMINATION: This morning blood pressure was 142/100, heart rate of 77 per minute. She is afebrile. Examination of the heart S1, S2. Examination of the lungs, bilateral breath sounds are heard. Decreased breath sounds at the bases. Upper airway sounds are heard. Examination of the abdomen reveals it to be soft, nontender. Examination lower extremities shows no significant edema. MANAGER CASE exam is grossly intact. LAB: Show sodium of 122 this morning. Magnesium 1.8. Potassium was 3.9, serum creatinine 0.4 mg/dL. ASSESSMENT: 1. Hyponatremia with seizures status post 3% saline. It appears to be euvolemic as his serum sodium worsened with initiation of normal saline. Urine osmolality was elevated. I will continue to maintain patient off of 3% saline or any other IV fluids for now, she should be encouraged to increase her oral intake. We need to avoid rapid increase in the sodium level. We will repeat another serum sodium this evening. 2. Seizure secondary to hyponatremia. 3. Hypokalemia from decreased oral intake, status post replacement. 4. Benign hypertension, currently controlled. 5. History of atrial fibrillation, currently with controlled ventricular response maintained on Eliquis. PLAN: Continue off of 3% saline. Increase oral intake as tolerated. Repeat serum sodium this evening. Follow up on TSH levels. MMODL / IJN: [id number] /
--- NOTE | 2019-03-10 16:12 | P.PN ---
Subjective Progress Note Date: 03/10/19 This is 78 years old female who presented to the emergency department for altered mental status. Patient had dental workup on Sunday and was discharged with penicillin and narcotic prescription for pain control patient started being lethargic and refusing meals and became extremely dehydrated and on Sunday morning her decided to bring her into [place] emergency department where patient was found to have sodium of 111 and patient was started on normal saline that caused her sodium dropped to 108 patient during evaluation there looked witnessed tonic-clonic seizure with jerking movements but no bowel or bladder incontinence according to the patient was still lethargic and confused and had a son who was not there but was informed by his father who brought her into the emergency department. Patient currently is slightly confused in the intensive care unit still with low appetite but following commands and answering questions appropriately with yes or no. Patient was started on 3% infusion and placed in the intensive care unit and nephrology consult was obtained along with critical care consult sodium slightly improved currently at 111 and patient seems to be stable. Patient is denying any pain at this point 03/10: Overnight, patient's sodium gradually improved and this morning is at 121, potassium 3.9, chloride 90 and CO2 24, BUN 18 creatinine 0.41. Digoxin level came back at 0.4. Calcium 7.7. Chest x-ray this morning shows marked cardiomegaly. Recommend echocardiogram to assess for pericardial effusion. COPD. Minimal left basilar atelectasis. Patient is currently on IV fluids of 0.9 normal saline at 10 mL per hour. Patient is status post potassium replacement. She has had adequate urine output. This morning she is complaining of some cough and chest pain with history of asthma. She complains of feeling tired. We have added in Solu- Medrol, resumed Pulmicort, repeat chest x-ray tomorrow and modified barium swallow. Echocardiogram ordered. Initial AST and bilirubin elevated on admission. We will ask for fraction bilirubin and hepatitis panel. Digoxin will be resumed his heart rate is starting to run higher. Objective - Vital Signs Vital signs: Vital Signs Temp 98.4 F 03/10/19 08:00 Pulse 102 H 03/10/19 09:00 Resp 25 H 03/10/19 09:00 BP 142/100 03/10/19 09:00 Pulse Ox 99 03/10/19 09:00 Intake & Output 03/09/19 03/10/19 03/10/19 18:59 06:59 18:59 Intake Total 2440 890 30 Output Total 1200 1665 185 Balance 6390 -905 -456 Weight 56.9 kg Intake: IV 1000 410 30 0.9 NaCl 10 30 Potassium Chloride 10 meq 600 In Water For Injection 1 100ml.bag @ 100 mls/hr IVPB Q1HR [facility] Rx#: [id number] Sodium Chloride 3%( 400 400 Hypertonic) 500 ml @ 40 mls/hr IV .[id number] [facility] Rx #:[id number] Oral 1440 480 Output: Urine 1200 1665 185 Other: Voiding Method Indwelling Catheter Indwelling Catheter Indwelling Catheter - Exam Review Of Systems: Constitutional: No fever, no chills, no night sweats. No weight change. Reports weakness. EENT: No headache. No blurred vision or double vision, no loss of vision. No loss of Hearing, no ringing in the ears, no dizziness. No nasal drainage or congestion. No epistaxis. No sore throat. Lungs: Reports shortness of breath, reports cough, no sputum production. R eports wheezing. Cardiovascular: Reports chest pain, no lower extremity edema. No palpitations. No paroxysmal nocturnal dyspnea. No orthopnea. No lightheadedness or dizziness. No syncopal episodes. Abdominal: No abdominal pain. No nausea, vomiting. No diarrhea. No constipation. No bloody or tarry stools.. No loss of appetite. Genitourinary: No dysuria, increased frequency, urgency. No urinary retention. Musculoskeletal: No myalgias. No muscle weakness, no gait dysfunction, no frequent falls. No back pain. No neck pain. Integumentary: No wounds, no lesions. No rash or pruritus. No unusual bruising. No change in hair or nails. Neurologic: No aphasia. No facial droop. No change in mentation. No head injury. No headache. No paralysis. No paresthesia. Psychiatric: No depression. No anxiety. No mood swings. Endocrine: No abnormal blood sugars. No weight change. No excessive sweating or thirst. No cold intolerance. Gen: This is an 78-year-old female. She is resting in the ICU bed and appears to be comfortable and in no acute distress. HEENT: Head is atraumatic, normocephalic. Pupils equal, round. Sclerae is anicteric. NECK: Supple. No JVD. No lymphadenopathy. No thyromegaly. LUNGS: Scattered wheezing and crackles in the right base No intercostal r etractions. HEART: Irregular rate and rhythm. No murmur. ABDOMEN: Soft. Bowel sounds are present. No masses. No tenderness. EXTREMITIES: No pedal edema. No calf tenderness. NEUROLOGICAL: Patient is awake, alert and oriented x3. Cranial nerves 2 through 12 are grossly intact. - Labs CBC & Chem 7: 03/09/19 00:39 03/10/19 11:57 Labs: Abnormal Lab Results - Last 24 Hours (Table) 03/09/19 03/09/19 03/09/19 Range/Units 10:39 14:06 18:21 Sodium 111 L* 109 L* 111 L* (137-145) mmol/L Potassium 3.3 L (3.5-5.1) mmol/L Chloride 73 L* 74 L* 78 L (98-107) mmol/L Creatinine 0.42 L 0.39 L (0.52-1.04) mg/dL Glucose 119 H 171 H 153 H (74-99) mg/dL Osmolality 227 L* (280-301) mosm/kg Uric Acid 2.0 L (3.7-7.4) mg/dL Calcium 7.5 L 7.2 L 7.3 L (8.4-10.2) mg/dL 03/09/19 03/10/19 03/10/19 Range/Units 22:13 01:11 03:55 Sodium 113 L* 117 L* 118 L* (137-145) mmol/L Potassium 3.3 L (3.5-5.1) mmol/L Chloride (98-107) mmol/L Creatinine (0.52-1.04) mg/dL Glucose (74-99) mg/dL Osmolality (280-301) mosm/kg Uric Acid (3.7-7.4) mg/dL Calcium (8.4-10.2) mg/dL 03/10/19 Range/Units 08:18 Sodium 121 L (137-145) mmol/L Potassium (3.5-5.1) mmol/L Chloride 90 L (98-107) mmol/L Creatinine 0.41 L (0.52-1.04) mg/dL Glucose 114 H (74-99) mg/dL Osmolality (280-301) mosm/kg Uric Acid (3.7-7.4) mg/dL Calcium 7.7 L (8.4-10.2) mg/dL Assessment and Plan Plan: 1. Acute hyponatremia, critical, improving. Patient is currently off IV fluids at 3% saline. Nephrology consult is appreciated. Continue to monitor electrolytes closely. 2. Seizure breakthrough likely secondary to #1. 3. Metabolic encephalopathy secondary to hyponatremia improved. 4. Severe dehydration. 5. Debility and weakness. 6. Chronic Atrial fibrillation. Continue eliquis, digoxin. 7. Hypertension. Continue losartan at 100 mg daily, avoid hydrochlorothiazide in the future. 8. GERD. Pepcid. 9. Asthma moderate persistent. 10. Generalized anxiety disorder. Continue Ativan as needed. 11. Acute asthma exacerbation, mild intermittent asthma. Continue DuoNeb treatments 3 times daily scheduled and as needed, Pulmicort 0.5 mg twice daily, Cytomel 40 mg every 8 hours for 2 doses. Discharge plan: To be determined Impression and plan of care have been directed as dictated by the signing physician. Marina Mock nurse practitioner acting as scribe for signing physician.
[2019-03-10] MEDS: methylPREDNISolone SOD SUCCI 40 MG/ML 1 ML VIAL IV SCH (16:19)
--- NOTE | 2019-03-10 16:40 | P.PN ---
Subjective Progress Note Date: 03/10/19 On 03/10/2019 the patient is being seen for a follow-up. Sodium level is gradually improving and his level is up to 121. The patient seems to be in gradually recovering her mentation patient seems to more awake and alert compared to yesterday. No seizure activity has been noted. She was taken off the hypertonic saline and she is currently on IV fluids with normal saline at the rate of 10 mL an hour. The patient's potassium was also replaced. She has an adequate urine output. She has some limited cough and congestion for which she was started on bronchodilators around the clock. She has previous history of smoking. Chest x-ray shows significant cardiomegaly and the patient is going to have an echo of the heart. Meanwhile, she remains in atrial fibrillation. Rate is controlled. Digoxin has been resumed. No other significant events overnight. Neurologic exam is nonfocal. Objective - Vital Signs Vital signs: Vital Signs Temp 98.1 F 03/10/19 16:00 Pulse 80 03/10/19 16:00 Resp 29 H 03/10/19 16:00 BP 139/96 03/10/19 16:00 Pulse Ox 95 03/10/19 16:00 Intake & Output 03/09/19 03/10/19 03/10/19 18:59 06:59 18:59 Intake Total 2440 890 340 Output Total 1200 1665 875 Balance 1240 -775 -535 Weight 56.9 kg Intake: IV 1000 410 100 0.9 NaCl 10 100 Potassium Chloride 10 meq 600 In Water For Injection 1 100ml.bag @ 100 mls/hr IVPB Q1HR [facility] Rx#: [id number] Sodium Chloride 3%( 400 400 Hypertonic) 500 ml @ 40 mls/hr IV .[id number] [facility] Rx #:[id number] Oral 1440 480 Blood Product 240 Output: Urine 1200 1665 875 Other: Voiding Method Indwelling Catheter Indwelling Catheter Indwelling Catheter - Exam Gen. appearance she is calm comfortable nonacute distress Head exam was generally normal. There was no scleral icterus or corneal arcus. Mucous membranes were moist. Neck was supple and without jugular venous distension, thyromegaly, or carotid bruits. Carotids were easily palpable bilaterally. There was no adenopathy. Lungs were clear to auscultation and percussion, and with normal diaphragmatic excursion. No wheezes or rales were noted. Few scattered expiratory wheezes throughout the lung his bilaterally. Heart sounds are irregular, possible sinus and there is no cervical murmurs appreciated. Abdominal exam revealed normal bowel sounds. The abdomen was soft, non-tender, and without masses, organomegaly, or appreciable enlargement of the abdominal aorta. Examination of the extremities revealed easily palpable radial, femoral and pedal pulses. There was no cyanosis, clubbing or edema. Examination of the skin revealed no evidence of significant rashes, suspicious appearing nevi or other concerning lesions. Neurologically she is awake and alert and there is no focal neurological deficits. - Labs CBC & Chem 7: 03/09/19 00:39 03/10/19 11:57 Labs: Abnormal Lab Results - Last 24 Hours (Table) 03/09/19 03/09/19 03/10/19 Range/Units 18:21 22:13 01:11 Sodium 111 L* 113 L* 117 L* (137-145) mmol/L Potassium 3.3 L (3.5-5.1) mmol/L Chloride 78 L (98-107) mmol/L Creatinine 0.39 L (0.52-1.04) mg/dL Glucose 153 H (74-99) mg/dL Calcium 7.3 L (8.4-10.2) mg/dL Total Bilirubin (0.2-1.3) mg/dL Unconjugated Bilirubin (0.0-1.1) mg/dL Delta Bilirubin (0.0-0.2) mg/dL 03/10/19 03/10/19 03/10/19 Range/Units 03:55 08:18 11:57 Sodium 118 L* 121 L 122 L (137-145) mmol/L Potassium (3.5-5.1) mmol/L Chloride 90 L (98-107) mmol/L Creatinine 0.41 L (0.52-1.04) mg/dL Glucose 114 H (74-99) mg/dL Calcium 7.7 L (8.4-10.2) mg/dL Total Bilirubin (0.2-1.3) mg/dL Unconjugated Bilirubin (0.0-1.1) mg/dL Delta Bilirubin (0.0-0.2) mg/dL 03/10/19 Range/Units 11:57 Sodium (137-145) mmol/L Potassium (3.5-5.1) mmol/L Chloride (98-107) mmol/L Creatinine (0.52-1.04) mg/dL Glucose (74-99) mg/dL Calcium (8.4-10.2) mg/dL Total Bilirubin 3.7 H (0.2-1.3) mg/dL Unconjugated Bilirubin 3.1 H (0.0-1.1) mg/dL Delta Bilirubin 0.6 H (0.0-0.2) mg/dL Assessment and Plan Plan: 1 acute hyponatremia, symptomatic, treated with 3% hypertonic saline solution and the patient's sodium level is up 222 and the patient is currently off the hypertonic saline solution. 2 altered mentation secondary to above, improving 3 seizures secondary to above, inactive in stable 4 severe dehydration, improving 5 chronic atrial fibrillation rate is controlled for now 6 massive cardiomegaly awaiting echocardiogram 7 hypertension 8 bronchial asthma/COPD with a component of exacerbation 9 acid reflux 10 severe debility secondary to above-mentioned comorbidities Plan Monitor the sodium level. Continue bronchodilators. Continue Pulmicort Respules. Continue IV Solu-Medrol. Awaiting echocardiogram. Monitor mentation. We'll continue to follow.
[2019-03-10] MEDS: DIGOXIN 125 MCG TAB PO SCH (17:41)
--- NOTE | 2019-03-10 18:49 | ECHOF ---
Referral Reason:Check pericardial effusion, LVF MEASUREMENTS -------- HEIGHT: 157.5 cm WEIGHT: 56.7 kg BP: IVSd: 1.4 cm (0.6 - 1.1) LVIDd: 3.1 cm (3.9 - 5.3) LVPWd: 1.4 cm (0.6 - 1.1) IVSs: 1.9 cm LVIDs: 1.4 cm LVPWs: 1.6 cm RVIDd: 2.0 cm (< 3.3) Ao Diam: 3.8 cm (2.0 - 3.7) LA Diam: 3.3 cm (2.7 - 3.8) AV Cusp: 1.2 cm (1.5 - 2.6) MV E Rene: 0.72 m/s MV DecT: 143 ms MV A Rene: 0.26 m/s MV E/A Ratio: 2.76 AR PHT: 436 ms RAP: 15.00 mmHg RVSP: 53.98 mmHg FINDINGS -------- Sinus rhythm with extra systolic beats. This was a technically good study. The left ventricular size is normal. There is moderate concentric left ventricular hypertrophy. O verall left ventricular systolic function is normal with, an EF between 60 - 65 %. The right ventricle is normal in size. The left atrial size is normal. The right atrium is mildly enlarged. Aortic valve is trileaflet and is mildly thickened. There is moderate aortic regurgitation. Mild mitral regurgitation is present. Cannot exclude mitral valve prolapse. Severe tricuspid regurgitation present. There is moderate pulmonary hypertension. The right ventr icular systolic pressure, as measured by Doppler, is 53.98mmHg. There is no pulmonic regurgitation present. The aortic root is dilated measuring 3.8 cm. The inferior vena cava is mildly dilated. There is a trivial pericardial effusion present. CONCLUSIONS -------- 1. Sinus rhythm with extra systolic beats. 2. This was a technically good study. 3. The left ventricular size is normal. 4. There is moderate concentric left ventricular hypertrophy. 5. Overall left ventricular systolic function is normal with, an EF between 60 - 65 %. 6. The right ventricle is normal in size. 7. The left atrial size is normal. 8. The right atrium is mildly enlarged. 9. Aortic valve is trileaflet and is mildly thickened. 10. There is moderate aortic regurgitation. 11. Mild mitral regurgitation is present. 12. Cannot exclude mitral valve prolapse. 13. Severe tricuspid regurgitation present. 14. There is moderate pulmonary hypertension. 15. The right ventricular systolic pressure, as measured by Doppler, is 53.98mmHg. 16. There is no pulmonic regurgitation present. 17. The aortic root is dilated measuring 3.8 cm. 18. The inferior vena cava is mildly dilated. 19. There is a trivial pericardial effusion present. ECONOMIC CONSULTANT: Swati Espinoza RDCS
[2019-03-10] MEDS: BUDESONIDE 0.5 MG/2 ML NEBU INHALATION SCH (19:05)
[2019-03-10 20:59] LABS: Hepatitis A Antibody IgM Non-Reactive (Non-Reactive); Hepatitis B Core IgM Non-Reactive (Non-Reactive)
[2019-03-11] MEDS: methylPREDNISolone SOD SUCCI 40 MG/ML 1 ML VIAL IV SCH (00:10)
[2019-03-11 05:05] LABS: HCT 37.6 % (34.0-46.0); HGB 13.6 gm/dL (11.4-16.0); Hyperchromasia Slight; MCH 31.8 pg (25.0-35.0); MCHC 36.1 g/dL (31.0-37.0); MCV 88.1 fL (80.0-100.0); Mean Platelet Volume 7.6; Platelet Count 119 k/uL (150-450); RBC 4.27 m/uL (3.80-5.40); RDW 14.7 % (11.5-15.5); WBC 4.5 k/uL (3.8-10.6)
[2019-03-11 05:12] LABS: African American GFR (CKD) >90 (>60 ml/min/1.73 sqM); Anion Gap 7 mmol/L; Blood Urea Nitrogen 10 mg/dL (7-17); Carbon Dioxide 24 mmol/L (22-30); Chloride 93 mmol/L (98-107); Glucose 175 mg/dL (74-99); Magnesium 1.9 mg/dL (1.6-2.3); Phosphorus 2.4 mg/dL (2.5-4.5); Potassium 4.2 mmol/L (3.5-5.1); Sodium 124 mmol/L (137-145)
--- NOTE | 2019-03-11 08:31 | XR ---
EXAMINATION TYPE: XR chest 2V DATE OF EXAM: 03/11/2019 COMPARISON: 03/10/2019 HISTORY: Wheezing TECHNIQUE: Frontal and lateral views of the chest are obtained. FINDINGS: Again there is marked cardiomegaly. New patchy right hilar density is seen. This is presen t in the right middle lobe on the lateral view. Underlying COPD is noted as pulmonary hyperinflation and biapical lucency. Mild generalized osseous demineralization with minimal degenerative changes of the spine and exaggerated thoracic kyphosis. No pneumothorax. IMPRESSION: New right middle lobe opacity, suspected unifocal pneumonia. Stable marked cardiomegaly and sequela of COPD.
[2019-03-11] MEDS ORDERED: RX INFO: IV CONTRAST WAS GIVEN 1 EACH MISC MISCELLANE PRN (08:43)
[2019-03-11] MEDS: IPRATROPIUM-ALBUTEROL 3 ML NEB INHALATION SCH ×3 (09:02→19:24)
[2019-03-11] MEDS: BUDESONIDE 0.5 MG/2 ML NEBU INHALATION SCH ×2 (09:04→19:23)
--- NOTE | 2019-03-11 12:12 | FL ---
EXAMINATION TYPE: FL barium swallow w video DATE OF EXAM: 03/11/2019 MODIFIED SWALLOW / DEGLUTITION STUDY CLINICAL HISTORY: Dysphagia. TECHNIQUE: Deglutition study is performed utilizing thin liquid barium, honey and nectar thick liqui d barium, barium thick applesauce, and barium coated cracker. A total of 1 minute 10 seconds of fluor oscopic time was utilized during procedure. 0 spot images are saved to PACS. COMPARISON: None. FINDINGS: The oral and pharyngeal phases show satisfactory initiation and propagation with all modali ties tested. Normal mastication is seen with solid modalities tested. There is no evidence of penet ration or aspiration with any modality tested. No significant pharyngeal residue was appreciated. IMPRESSION: No penetration or aspiration observed. Please refer to speech therapist notes for furthe r details if necessary.
--- NOTE | 2019-03-11 12:35 | CT ---
EXAMINATION TYPE: CT chest w con DATE OF EXAM: 03/11/2019 COMPARISON: Chest x-ray earlier today HISTORY: Shortness of breath CT DLP: 110.6 mGycm. Automated Exposure Control for Dose Reduction was Utilized. TECHNIQUE: CT scan of the thorax is performed following with IV Contrast, patient injected with 80 m L of Isovue 300. FINDINGS: LUNGS: Corresponding to lateral chest x-ray there is consolidation with air bronchograms sagittal jessica ge 21 right middle lobe abutting the right heart border. There is soft tissue filling right middle lo be bronchus coronal image 35 correlate for possible mucous plugging. There is additional consolidatio n with air bronchograms in the posterior lingula axial image 42. Lung bases show patchy linear atelec tasis and/or scarring. There is 5 x 3 mm right lower lobe lateral subpleural groundglass opacity or n odule axial image 52. Some patchy irregular infiltrate right lower lobe axial image 42 is noted. Xavi tional multifocal areas of groundglass opacity in the periphery anterior inferior left upper lobe axi al image 25 and in the periphery of the right upper lobe axial image 25 are noted. No pleural effusio n or pneumothorax is seen. Mild underlying COPD is noted. MEDIASTINUM: Cardiomegaly is present. There is severe right atrial dilatation. No pericardial effusi on is seen. Main pulmonary artery measures 2.5 cm in diameter on axial image 29. Adjacent ascending a herrera measures up to 4.3 cm in diameter. There is right hilar adenopathy axial image 29. Some reflux o f contrast into IVC and hepatic veins with dilatation suggests degree of right heart failure. OTHER: There is moderate calcified plaque of aorta extending into upper abdominal branch vessels. IMPRESSION: Multifocal faint areas of edema and/or infiltrate bilaterally not well seen on x-ray. Rig ht middle lobe consolidation favors atelectasis from obstructing mucous plug over acute infiltrate. C ardiomegaly with severe right atrial dilatation and evidence of right heart failure. Ascending aortic aneurysm up to 4.3 cm in diameter.
--- NOTE | 2019-03-11 12:43 | P.PN ---
Subjective Progress Note Date: 03/11/19 On 03/11/2019 the patient is awake and alert. Sodium level is gradually improving and the sodium level is up to 124. Renal function stable. The CAT scan of the chest was done today and showed some nonspecific groundglass changes bilaterally. There was significant cardiomegaly with RA and RV dilation. There was also limited right middle lobe consolidation which I favor atelectasis. There is an ascending aortic aneurysm measuring 4.3 cm in size. No evidence of any mediastinal mass or tumors. She remains in atrial fibrillation. The patient on long-term and to coagulation with Eliquis. Swallow evaluation was also done and the patient was found to have no evidence of any penetration or aspiration. Neurologic exam is nonfocal. No seizure activity has been noted. The cardiac rhythm is atrial fibrillation at the rate is controlled. Objective - Vital Signs Vital signs: Vital Signs Temp 96.5 F L 03/11/19 08:00 Pulse 77 03/11/19 10:00 Resp 17 03/11/19 10:00 BP 154/84 03/11/19 10:00 Pulse Ox 92 L 03/11/19 10:00 Intake & Output 03/10/19 03/11/19 03/11/19 18:59 06:59 18:59 Intake Total 360 300 60 Output Total 1000 830 75 Balance -640 -530 -15 Weight 60.5 kg Intake: IV 120 120 30 0.9 NaCl 120 120 30 Oral 180 30 Blood Product 240 Output: Urine 1000 830 75 Other: Voiding Method Indwelling Catheter Indwelling Catheter Indwelling Catheter - Exam Gen. appearance she is calm comfortable nonacute distress Head exam was generally normal. There was no scleral icterus or corneal arcus. Mucous membranes were moist. Neck was supple and without jugular venous distension, thyromegaly, or carotid bruits. Carotids were easily palpable bilaterally. There was no adenopathy. Lungs were clear to auscultation and percussion, and with normal diaphragmatic excursion. No wheezes or rales were noted. Few scattered expiratory wheezes throughout the lung his bilaterally. Heart sounds are irregular, possible sinus and there is no cervical murmurs appreciated. Abdominal exam revealed normal bowel sounds. The abdomen was soft, non-tender, and without masses, organomegaly, or appreciable enlargement of the abdominal aorta. Examination of the extremities revealed easily palpable radial, femoral and pedal pulses. There was no cyanosis, clubbing or edema. Examination of the skin revealed no evidence of significant rashes, suspicious appearing nevi or other concerning lesions. Neurologically she is awake and alert and there is no focal neurological deficits. - Labs CBC & Chem 7: 03/11/19 04:36 03/11/19 04:36 Labs: Abnormal Lab Results - Last 24 Hours (Table) 03/10/19 03/10/19 03/11/19 Range/Units 11:57 16:49 04:36 Plt Count 119 L (150-450) k/uL Sodium 123 L (137-145) mmol/L Chloride (98-107) mmol/L Creatinine (0.52-1.04) mg/dL Glucose (74-99) mg/dL Calcium (8.4-10.2) mg/dL Phosphorus (2.5-4.5) mg/dL Total Bilirubin 3.7 H (0.2-1.3) mg/dL Unconjugated Bilirubin 3.1 H (0.0-1.1) mg/dL Delta Bilirubin 0.6 H (0.0-0.2) mg/dL 03/11/19 Range/Units 04:36 Plt Count (150-450) k/uL Sodium 124 L (137-145) mmol/L Chloride 93 L (98-107) mmol/L Creatinine 0.35 L (0.52-1.04) mg/dL Glucose 175 H (74-99) mg/dL Calcium 8.0 L (8.4-10.2) mg/dL Phosphorus 2.4 L (2.5-4.5) mg/dL Total Bilirubin (0.2-1.3) mg/dL Unconjugated Bilirubin (0.0-1.1) mg/dL Delta Bilirubin (0.0-0.2) mg/dL Assessment and Plan Plan: 1 acute hyponatremia, symptomatic, treated with 3% hypertonic saline solution and the patient's sodium level is up 124 and the patient is stable for now with out any altered mentation or seizure activity. The patient is on fluid restriction. 2 altered mentation secondary to above, improving 3 seizures secondary to above, inactive in stable 4 severe dehydration, improving 5 chronic atrial fibrillation rate is controlled for now, the patient a locomot any to coagulation with Eliquis 6 massive cardiomegaly mainly involving the right atrium and right ventricle. With signs of severe pulmonary hypertension with a PA pressure of around 53, probably related to underlying COPD. 7 hypertension 8 bronchial asthma/COPD with a component of exacerbation 9 acid reflux 10 severe debility secondary to above-mentioned comorbidities 11 right middle lobe atelectasis likely secondary to mucous plugs involving the right middle lobe bronchus. Plan Monitor the sodium level. Continue bronchodilators. Continue Pulmicort Respules. Echo was noted. CAT scan of the chest was noted. Increased level of activity as tolerated. Fluid restriction. Transfer this patient to medical floor.
--- NOTE | 2019-03-11 13:08 | PN ---
PROGRESS NOTE Patient is being followed for hyponatremia. She did have symptomatic seizure. Her sodium was low as 113 and did go down further to 109 with saline following which she was started on 3% saline and serum sodium continues to increase slowly. Pt is currrently down for a CT chest. I will continue with fluid restriction and increase protein intake. Repeat labs this evening. MMODL / IJN: [id number] / ROBBIE
[2019-03-11] MEDS: LOSARTAN 50 MG TAB PO SCH (13:57)
[2019-03-11] MEDS: APIXABAN 2.5 MG TABLET PO SCH ×2 (13:57→21:08)
[2019-03-11] MEDS: FAMOTIDINE 20 MG TAB PO SCH (13:57)
[2019-03-11] MEDS: DIGOXIN 125 MCG TAB PO SCH (13:57)
--- NOTE | 2019-03-11 17:09 | P.CONS ---
History of Present Illness - Chief Complaint Dizziness - History of Present Illness I had the opportunity see patient for inpatient rehab consultation with regard to dizziness. She was admitted to [facility] March 09 with acute onset dizziness would appear to be related to hyponatremia with breakthrough seizure for which is seen by Dr. Rivera and Dr. Carson. Chest x-ray demonstrates to right middle lobe opacity as well as old cardiomegaly and COPD. Chest CT with multifocal lesions. Speech therapy assess swallowing recommend pured and thin liquid. PT and OT prescribed. Previous functional history as elicited from patient: 78-year-old right-handed white female who is lives in a first-floor of HER-2 floor home with . Both retired. Patient indeed independent with cooking, laundry, driving, standing shower and gait without device. Dr. Toñito Burnette is regular doctor. Denies tobacco or alcohol. Family history both parents with hypertension and stroke. Review of Systems Review of systems: ENT: Denies sneezes or discharge. Eyes: Denies discharge or photophobia. Cardiac: Denies chest pain or palpitation. Pulmonary: Denies cough or shortness of breath. Breast: Denies discharge or lumps. Gastrointestinal: Denies nausea, emesis, constipation, diarrhea. Genitourinary: Denies discharge or frequency. Musculoskeletal: Denies muscle or bone aches. Neurologic: Still with some dizziness. Endocrine: Denies shakes or sweats. Oncology: Denies cancers. Dermatologic: Denies rash, itching, pruritus. ALLERGY/immunology: Denies sneezes, rashes. Past Medical History Past Medical History: Atrial Fibrillation, Asthma, GERD/Reflux, Hypertension, Osteoarthritis (OA), Respiratory Disorder Additional Past Medical History / Comment(s): Chronic cough History of Any Multi-Drug Resistant Organisms: None Reported Past Surgical History: Ear Surgery Additional Past Surgical History / Comment(s): bilateral cateract surgery, tooth extraction Past Anesthesia/Blood Transfusion Reactions: No Reported Reaction Past Psychological History: No Psychological Hx Reported Smoking Status: Never smoker Past Alcohol Use History: None Reported Past Drug Use History: None Reported - Past Family History Mother Family Medical History: CVA/TIA, Hypertension Father Family Medical History: CVA/TIA Medications and Allergies Home Medications Medication Instructions Recorded Confirmed Type Apixaban [Eliquis] 2.5 mg PO BID 03/09/19 03/09/19 History Budesonide [Pulmicort] 0.5 mg INHALATION RT-BID 03/09/19 03/09/19 History Digoxin [Lanoxin] 125 mcg PO DAILY 03/09/19 03/09/19 History Ipratropium-Albuterol Nebulize 3 ml INHALATION RT-BID 03/09/19 03/09/19 History [Duoneb 0.5 mg-3 mg/3 ml Soln] Losartan-Hctz 50-12.5 mg [Hyzaar 1 tab PO DAILY 03/09/19 03/09/19 History 50-12.5] Penicillin V Potassium [Pen Vee K] 500 mg PO QID 03/09/19 03/09/19 History Allergies Allergy/AdvReac Type Severity Reaction Status Date / Time No Known Allergies Allergy Verified 03/09/19 08:51 Physical Exam Vitals: Vital Signs Temp Pulse Resp BP Pulse Ox 03/11/19 12:00 97.5 F L 75 17 154/84 96 03/11/19 11:00 66 16 154/84 94 L 03/11/19 10:00 77 17 154/84 92 L 03/11/19 09:22 80 03/11/19 09:04 74 95 03/11/19 09:00 71 20 154/84 94 L 03/11/19 08:00 96.5 F L 49 L 18 171/102 95 03/11/19 07:00 70 20 171/102 03/11/19 06:00 71 18 148/103 92 L 03/11/19 05:00 73 21 143/89 92 L 03/11/19 04:00 97.8 F 76 22 130/73 92 L 03/11/19 03:00 75 21 156/95 92 L 03/11/19 02:00 80 16 143/106 94 L 03/11/19 01:00 79 24 126/85 95 03/11/19 00:00 97.4 F L 73 14 121/94 93 L 03/10/19 23:00 78 25 H 138/92 92 L 03/10/19 22:00 78 26 H 128/82 94 L 03/10/19 21:00 84 18 142/99 92 L 03/10/19 20:00 97.5 F L 93 23 146/85 93 L 03/10/19 19:17 78 0610/19 19:06 74 94 L 03/10/19 19:00 79 18 140/87 94 L 03/10/19 18:00 84 28 H 157/87 94 L Intake and Output 03/11/19 03/11/19 03/11/19 06:59 14:59 22:59 Intake Total 80 70 Output Total 385 325 Balance -305 -255 Intake: IV 80 40 0.9 NaCl 80 40 Oral 30 Output: Urine 385 325 Other: Voiding Method Indwelling Catheter Indwelling Catheter Weight 60.5 kg Skin: Atrophic, intact. General: Medium build and comfortable appearance. Head: Normocephalic, atraumatic. Eyes: Symmetric. Pupils equal round. Ears: Symmetric. Hearing within normal limits. Mouth: Clear. Neck: Supple. Carotid without bruit. Cardiac: Regular rate and rhythm. Lungs: Clear anteriorly and posteriorly. Abdomen: Soft active nontender. Extremities: Normal tone. Neurological: Mental status: Alert, cooperative, pleasant. Cranial nerves: Symmetric facial tone and trapezius. Motor: Active movement all 4 limbs. Sensation: Intact throughout. DTRs: Symmetric and equal throughout. Mobility: Required nursing assistance for transfer from bed to bedside commode. Results CBC & Chem 7: 03/11/19 04:36 03/11/19 14:19 Labs: Abnormal Lab Results - Last 24 Hours (Table) 03/10/19 03/11/19 03/11/19 Range/Units 16:49 04:36 04:36 Plt Count 119 L (150-450) k/uL Sodium 123 L 124 L (137-145) mmol/L Chloride 93 L (98-107) mmol/L Creatinine 0.35 L (0.52-1.04) mg/dL Glucose 175 H (74-99) mg/dL Calcium 8.0 L (8.4-10.2) mg/dL Phosphorus 2.4 L (2.5-4.5) mg/dL 03/11/19 Range/Units 14:19 Plt Count (150-450) k/uL Sodium 126 L (137-145) mmol/L Chloride (98-107) mmol/L Creatinine (0.52-1.04) mg/dL Glucose (74-99) mg/dL Calcium (8.4-10.2) mg/dL Phosphorus (2.5-4.5) mg/dL Microbiology - Last 24 Hours (Table) 03/11/19 09:04 Sputum Culture - Preliminary Sputum Assessment and Plan (1) Hyponatremia Current Visit: Yes Status: Acute Code(s): E87.1 - HYPO-OSMOLALITY AND HYPONATREMIA SNOMED Code(s): 81510632 (2) New onset seizure Current Visit: Yes Status: Acute Code(s): R56.9 - UNSPECIFIED CONVULSIONS SNOMED Code(s): 83779773 Plan: Impression: 1. Gait disturbance. 2. Hyponatremia with new-onset seizure. 3. Hypertension. 4. Osteoarthritis. 5. Asthma. 6. Atrial fibrillation. Comments and plan: PT and OT prescribed. Follow therapies with yourself. Have that with 2 daughters and discussed possible inpatient rehab, if necessary. Note one daughter is a physical therapist and is working rehab unit previously.
[2019-03-11] MEDS: LEVOFLOXACIN 500 MG TAB PO SCH (17:18)
[2019-03-11] MEDS: APIXABAN 5 MG TAB PO SCH (19:08)
[2019-03-11 21:26] VITALS: RESP 18
--- NOTE | 2019-03-12 08:14 | P.PN ---
Subjective Progress Note Date: 03/11/19 This is 78 years old female who presented to the emergency department for altered mental status. Patient had dental workup on Sunday and was discharged with penicillin and narcotic prescription for pain control patient started being lethargic and refusing meals and became extremely dehydrated and on Sunday morning her decided to bring her into [place] emergency department where patient was found to have sodium of 111 and patient was started on normal saline that caused her sodium dropped to 108 patient during evaluation there looked witnessed tonic-clonic seizure with jerking movements but no bowel or bladder incontinence according to the patient was still lethargic and confused and had a son who was not there but was informed by his father who brought her into the emergency department. Patient currently is slightly confused in the intensive care unit still with low appetite but following commands and answering questions appropriately with yes or no. Patient was started on 3% infusion and placed in the intensive care unit and nephrology consult was obtained along with critical care consult sodium slightly improved currently at 111 and patient seems to be stable. Patient is denying any pain at this point 03/10: Overnight, patient's sodium gradually improved and this morning is at 121, potassium 3.9, chloride 90 and CO2 24, BUN 18 creatinine 0.41. Digoxin level came back at 0.4. Calcium 7.7. Chest x-ray this morning shows marked cardiomegaly. Recommend echocardiogram to assess for pericardial effusion. COPD. Minimal left basilar atelectasis. Patient is currently on IV fluids of 0.9 normal saline at 10 mL per hour. Patient is status post potassium replacement. She has had adequate urine output. This morning she is complaining of some cough and chest pain with history of asthma. She complains of feeling tired. We have added in Solu- Medrol, resumed Pulmicort, repeat chest x-ray tomorrow and modified barium swallow. Echocardiogram ordered. Initial AST and bilirubin elevated on admission. We will ask for fraction bilirubin and hepatitis panel. Digoxin will be resumed his heart rate is starting to run higher. 03/11: Sodium this morning was 124, potassium 4.2, chloride 93, CO2 24. Acute hepatitis panel was negative. Fractionated bilirubin revealed total bilirubin 3.7, conjugated 0, unconjugated 3.1, delta 0.6. TSH was 1.720. Echocardiogram reveals EF of 60-65%, moderate concentric left ventricular hypertrophy, moderate aortic regurgitation, mild mitral regurgitation, cannot exclude mitral valve prolapse. Severe tricuspid regurgitation, moderate pulmonary hypertension, aortic root dilated at 3.8 cm, trivial pericardial effusion. Repeat chest x-ray shows new right middle lobe opacities suspected unifocal pneumonia. Stable marked cardiomegaly and sequela of COPD. CAT scan of the chest revealed multifocal faint areas of edema and/or infiltrate bilaterally not well seen on x-ray. Right middle lobe consolidation favors atelectasis from obstructing mucous plug over acute infiltrate. Cardiomegaly with severe right atrial dilata tion and evidence of right heart failure. Ascending aortic aneurysm up to 4.3 cm in diameter. Modified barium swallow was negative and patient had no signs of aspiration. Patient is status post 2 doses of IV steroids and will transition to oral prednisone for tomorrow. Incentive spirometry ordered. Patient states that her breathing is much improved from yesterday. Dr. Rainey continues to follow and recommending increasing her oral intake, currently off IV fluids. Speech evaluated the patient yesterday and patient passed bedside swallow but we still plan to pursue modified barium swallow. The patient has been seen by Dr. Walters this morning cleared for transfer to [facility] floor with telemetry. We will add in consult with Dr. Linares for possible inpatient rehab. Objective - Vital Signs Vital signs: Vital Signs Temp 96.5 F L 03/11/19 08:00 Pulse 80 03/11/19 09:22 Resp 20 03/11/19 09:00 BP 154/84 03/11/19 09:00 Pulse Ox 95 03/11/19 09:04 Intake & Output 03/10/19 03/11/19 03/11/19 18:59 06:59 18:59 Intake Total 360 300 60 Output Total 1000 830 75 Balance -640 -530 -15 Weight 60.5 kg Intake: IV 120 120 30 0.9 NaCl 120 120 30 Oral 180 30 Blood Product 240 Output: Urine 1000 830 75 Other: Voiding Method Indwelling Catheter Indwelling Catheter - Exam Review Of Systems: Constitutional: No fever, no chills, no night sweats. No weight change. Reports weakness. EENT: No headache. No blurred vision or double vision, no loss of vision. No loss of Hearing, no ringing in the ears, no dizziness. No nasal drainage or congestion. No epistaxis. No sore throat. Lungs: Reports shortness of breath improved, reports cough improved, no sputum production. Reports wheezing. Cardiovascular: Reports chest pain, no lower extremity edema. No palpitations. No paroxysmal nocturnal dyspnea. No orthopnea. No lightheadedness or dizziness. No syncopal episodes. Abdominal: No abdominal pain. No nausea, vomiting. No diarrhea. No constipation. No bloody or tarry stools.. No loss of appetite. Genitourinary: No dysuria, increased frequency, urgency. No urinary retention. Musculoskeletal: No myalgias. No muscle weakness, no gait dysfunction, no frequent falls. No back pain. No neck pain. Integumentary: No wounds, no lesions. No rash or pruritus. No unusual bruising. No change in hair or nails. Neurologic: No aphasia. No facial droop. No change in mentation. No head injury. No headache. No paralysis. No paresthesia. Psychiatric: No depression. No anxiety. No mood swings. Endocrine: No abnormal blood sugars. No weight change. No excessive sweating or thirst. No cold intolerance. Gen: This is an 78-year-old female. She is resting in the ICU bed and appears to be comfortable and in no acute distress. HEENT: Head is atraumatic, normocephalic. Pupils equal, round. Sclerae is anicteric. NECK: Supple. No JVD. No lymphadenopathy. No thyromegaly. LUNGS: Clear to auscultation. No intercostal retractions. HEART: Irregular rate and rhythm. No murmur. ABDOMEN: Soft. Bowel sounds are present. No masses. No tenderness. EXTREMITIES: No pedal edema. No calf tenderness. NEUROLOGICAL: Patient is awake, alert and oriented x3. Cranial nerves 2 through 12 are grossly intact. - Labs CBC & Chem 7: 03/11/19 04:36 03/11/19 14:19 Labs: Abnormal Lab Results - Last 24 Hours (Table) 03/10/19 03/10/19 03/10/19 Range/Units 11:57 11:57 16:49 Plt Count (150-450) k/uL Sodium 122 L 123 L (137-145) mmol/L Chloride (98-107) mmol/L Creatinine (0.52-1.04) mg/dL Glucose (74-99) mg/dL Calcium (8.4-10.2) mg/dL Phosphorus (2.5-4.5) mg/dL Total Bilirubin 3.7 H (0.2-1.3) mg/dL Unconjugated Bilirubin 3.1 H (0.0-1.1) mg/dL Delta Bilirubin 0.6 H (0.0-0.2) mg/dL 03/11/19 03/11/19 Range/Units 04:36 04:36 Plt Count 119 L (150-450) k/uL Sodium 124 L (137-145) mmol/L Chloride 93 L (98-107) mmol/L Creatinine 0.35 L (0.52-1.04) mg/dL Glucose 175 H (74-99) mg/dL Calcium 8.0 L (8.4-10.2) mg/dL Phosphorus 2.4 L (2.5-4.5) mg/dL Total Bilirubin (0.2-1.3) mg/dL Unconjugated Bilirubin (0.0-1.1) mg/dL Delta Bilirubin (0.0-0.2) mg/dL Assessment and Plan Plan: 1. Acute hyponatremia, critical, improving. Patient is currently off IV fluids at 3% saline. Nephrology consult is appreciated. Continue to monitor electroly louie closely. 2. Seizure breakthrough likely secondary to #1. 3. Metabolic encephalopathy secondary to hyponatremia improved. 4. Severe dehydration. 5. Debility and weakness. 6. Chronic Atrial fibrillation. Continue eliquis, digoxin. 7. Hypertension. Continue losartan at 100 mg daily, avoid hydrochlorothiazide in the future. 8. GERD. Pepcid. 9. Asthma moderate persistent. 10. Generalized anxiety disorder. Continue Ativan as needed. 11. Acute asthma exacerbation, moderate persistent asthma possible right middle lobe pneumonia ruled out fever and atelectasis. Incentive spirometry added. Continue DuoNeb treatments 3 times daily scheduled and as needed, Pulmicort 0.5 mg twice daily, Solu-Medrol 2 doses completed and patient will be transitioned to oral prednisone. Discharge plan: To be determined. Consult with Dr. Linares for possible inpatient rehab. PT and OT. Impression and plan of care have been directed as dictated by the signing physician. Marina Mock nurse practitioner acting as scribe for signing physician.
[2019-03-12] MEDS: BUDESONIDE 0.5 MG/2 ML NEBU INHALATION SCH ×2 (08:21→20:18)
[2019-03-12] MEDS: IPRATROPIUM-ALBUTEROL 3 ML NEB INHALATION SCH ×3 (08:21→20:18)
[2019-03-12] MEDS: LOSARTAN 50 MG TAB PO SCH (08:50)
[2019-03-12] MEDS: DIGOXIN 125 MCG TAB PO SCH (08:50)
[2019-03-12] MEDS: FAMOTIDINE 20 MG TAB PO SCH (08:50)
[2019-03-12] MEDS: predniSONE 50 MG TAB PO SCH (08:51)
[2019-03-12] MEDS: APIXABAN 2.5 MG TABLET PO SCH ×2 (08:51→21:07)
[2019-03-12 10:35] LABS: African American GFR (CKD) >90 (>60 ml/min/1.73 sqM); Anion Gap 6 mmol/L; Blood Urea Nitrogen 18 mg/dL (7-17); Calcium 8.4 mg/dL (8.4-10.2); Carbon Dioxide 29 mmol/L (22-30); Chloride 92 mmol/L (98-107); Glucose 135 mg/dL (74-99); Potassium 3.9 mmol/L (3.5-5.1); Sodium 127 mmol/L (137-145)
[2019-03-12] MEDS: LEVOFLOXACIN 500 MG TAB PO SCH (12:24)
--- NOTE | 2019-03-12 14:12 | P.PN ---
Subjective Progress Note Date: 03/12/19 Principal diagnosis: Acute hyponatremia, improved On 03/11/2019 the patient is awake and alert. Sodium level is gradually improving and the sodium level is up to 124. Renal function stable. The CAT scan of the chest was done today and showed some nonspecific groundglass changes bilaterally. There was significant cardiomegaly with RA and RV dilation. There was also limited right middle lobe consolidation which I favor atelectasis. There is an ascending aortic aneurysm measuring 4.3 cm in size. No evidence of any mediastinal mass or tumors. She remains in atrial fibrillation. The patient on long-term and to coagulation with Eliquis. Swallow evaluation was also done and the patient was found to have no evidence of any penetration or aspiration. Neurologic exam is nonfocal. No seizure activity has been noted. The cardiac rhythm is atrial fibrillation at the rate is controlled. On 03/12/2019 patient seen in follow-up on medical surgical floor. Patient is awake and alert, in no acute distress, she is on room air, with pulse ox of 99%, afebrile, hemodynamically stable, lung sounds reveal some end expiratory wheezing, but overall less wheezy on today's exam, no rhonchi, no crackles. IV fluids have been discontinued, serum sodium today is 127, potassium is 3.9, chloride is 92, CO2 is 29, BUN is 18 creatinine is 0.50. Sputum culture is pending, Gram stain was positive for many gram-positive cocci, of multiple morphologies, moderate gram-positive bacilli, fungal cultures pending. No altered mentation. No acute events overnight, she continues on antibiotics, IV steroids, and nebulized bronchodilators Objective - Vital Signs Vital signs: Vital Signs Temp 98 F 03/12/19 12:01 Pulse 74 03/12/19 12:07 Resp 18 03/12/19 12:01 BP 163/97 03/12/19 12:01 Pulse Ox 99 03/12/19 12:01 Intake & Output 03/11/19 03/12/19 03/12/19 18:59 06:59 18:59 Intake Total 470 717 577 Output Total 675 Balance -205 717 577 Intake: IV 40 0.9 NaCl 40 Oral 430 717 577 Output: Urine 675 Other: Voiding Method Indwelling Catheter Toilet Toilet # Voids 2 - Exam GENERAL EXAM: Alert, active, comfortable in no apparent distress. HEAD: Normocephalic/atraumatic. EYES: Normal reaction of pupils, equal size. Conjunctiva pink, sclera white. NOSE: Clear with pink turbinates. THROAT: No erythema or exudates. NECK: No masses, no JVD, no thyroid enlargement, no adenopathy. CHEST: No chest wall deformity. Symmetrical expansion. LUNGS: Equal air entry with a few scattered wheezes CVS: Regular rate and rhythm, normal S1 and S2, no gallops, no murmurs, no rubs ABDOMEN: Soft, nontender. No hepatosplenomegaly, normal bowel sounds, no guarding or rigidity. EXTREMITIES: No clubbing, no edema, no cyanosis, 2+ pulses and upper and lower extremities. MUSCULOSKELETAL: Muscle strength and tone normal. SPINE: No scoliosis or deformity SKIN: No rashes CENTRAL NERVOUS SYSTEM: Alert and oriented -3. No focal deficits, tone is normal in all 4 extremities. PSYCHIATRIC: Alert and oriented -3. Appropriate affect. Intact judgment and insight. - Labs CBC & Chem 7: 03/11/19 04:36 03/12/19 09:44 Labs: Abnormal Lab Results - Last 24 Hours (Table) 03/11/19 03/12/19 Range/Units 14:19 09:44 Sodium 126 L 127 L (137-145) mmol/L Chloride 92 L (98-107) mmol/L BUN 18 H (7-17) mg/dL Creatinine 0.50 L (0.52-1.04) mg/dL Glucose 135 H (74-99) mg/dL Microbiology - Last 24 Hours (Table) 03/11/19 09:04 Gram Stain - Preliminary Sputum Sputum Culture - Preliminary Assessment and Plan Plan: 1 acute hyponatremia, symptomatic, treated with 3% hypertonic saline solution and the patient's sodium level is up 127 and the patient is stable for now without any altered mentation or seizure activity. The patient is on fluid restriction. 2 altered mentation secondary to above, improving 3 seizures secondary to above, inactive in stable 4 severe dehydration, improving 5 chronic atrial fibrillation rate is controlled for now, the patient a locomotive to coagulation with Eliquis 6 massive cardiomegaly mainly involving the right atrium and right ventricle. With signs of severe pulmonary hypertension with a PA pressure of around 53, probably related to underlying COPD. 7 hypertension 8 bronchial asthma/COPD with a component of exacerbation 9 acid reflux 10 severe debility secondary to above-mentioned comorbidities 11 right middle lobe atelectasis likely secondary to mucous plugs involving the right middle lobe bronchus. Plan: Continue current medical treatment, continue nebs as bronchodilators, steroids, antibiotics, will await results of the final sputum culture, clinically patient is asymptomatic, no altered mentation, serum sodium is improving, patient remains on fluid restriction. CT chest has been reviewed showing some multifocal faint areas of edema or infiltrate, and right middle lobe consolidation could be related to atelectasis. Clinically patient remains stable, increase activity as tolerated. I performed a history & physical examination of the patient and discussed their management with my nurse practitioner, Jennifer Larry. I reviewed the nurse practitioner's note and agree with the documented findings and plan of care. Lung sounds are positive for scattered wheezes. The findings and the impression was discussed with the patient. I attest to the documentation by the nurse practitioner. Time with Patient: Less than 30
--- NOTE | 2019-03-12 14:49 | P.PN ---
Subjective Progress Note Date: 03/12/19 This is 78 years old female who presented to the emergency department for altered mental status. Patient had dental workup on Sunday and was discharged with penicillin and narcotic prescription for pain control patient started being lethargic and refusing meals and became extremely dehydrated and on Sunday morning her decided to bring her into [place] emergency department where patient was found to have sodium of 111 and patient was started on normal saline that caused her sodium dropped to 108 patient during evaluation there looked witnessed tonic-clonic seizure with jerking movements but no bowel or bladder incontinence according to the patient was still lethargic and confused and had a son who was not there but was informed by his father who brought her into the emergency department. Patient currently is slightly confused in the intensive care unit still with low appetite but following commands and answering questions appropriately with yes or no. Patient was started on 3% infusion and placed in the intensive care unit and nephrology consult was obtained along with critical care consult sodium slightly improved currently at 111 and patient seems to be stable. Patient is denying any pain at this point 03/10: Overnight, patient's sodium gradually improved and this morning is at 121, potassium 3.9, chloride 90 and CO2 24, BUN 18 creatinine 0.41. Digoxin level came back at 0.4. Calcium 7.7. Chest x-ray this morning shows marked cardiomegaly. Recommend echocardiogram to assess for pericardial effusion. COPD. Minimal left basilar atelectasis. Patient is currently on IV fluids of 0.9 normal saline at 10 mL per hour. Patient is status post potassium replacement. She has had adequate urine output. This morning she is complaining of some cough and chest pain with history of asthma. She complains of feeling tired. We have added in Solu- Medrol, resumed Pulmicort, repeat chest x-ray tomorrow and modified barium swallow. Echocardiogram ordered. Initial AST and bilirubin elevated on admission. We will ask for fraction bilirubin and hepatitis panel. Digoxin will be resumed his heart rate is starting to run higher. 03/11: Sodium this morning was 124, potassium 4.2, chloride 93, CO2 24. Acute hepatitis panel was negative. Fractionated bilirubin revealed total bilirubin 3.7, conjugated 0, unconjugated 3.1, delta 0.6. TSH was 1.720. Echocardiogram reveals EF of 60-65%, moderate concentric left ventricular hypertrophy, moderate aortic regurgitation, mild mitral regurgitation, cannot exclude mitral valve prolapse. Severe tricuspid regurgitation, moderate pulmonary hypertension, aortic root dilated at 3.8 cm, trivial pericardial effusion. Repeat chest x-ray shows new right middle lobe opacities suspected unifocal pneumonia. Stable marked cardiomegaly and sequela of COPD. CAT scan of the chest revealed multifocal faint areas of edema and/or infiltrate bilaterally not well seen on x-ray. Right middle lobe consolidation favors atelectasis from obstructing mucous plug over acute infiltrate. Cardiomegaly with severe right atrial dilata tion and evidence of right heart failure. Ascending aortic aneurysm up to 4.3 cm in diameter. Modified barium swallow was negative and patient had no signs of aspiration. Patient is status post 2 doses of IV steroids and will transition to oral prednisone for tomorrow. Incentive spirometry ordered. Patient states that her breathing is much improved from yesterday. Dr. Rainey continues to follow and recommending increasing her oral intake, currently off IV fluids. Speech evaluated the patient yesterday and patient passed bedside swallow but we still plan to pursue modified barium swallow. The patient has been seen by Dr. Walters this morning cleared for transfer to [facility] floor with telemetry. We will add in consult with Dr. Linares for possible inpatient rehab. 03/12: [facility] Repeat lab work this morning reveals sodium of 127, potassium 3.9, chloride 92, CO2 29, BUN 18 and creatinine 0.5. Blood sugar 135. PT has evaluated and recommended home with homecare subacute rehab with 24-hour supervision. biodiesel product development manager is following up with discharge plan. Patient was seen by Dr. Linraes. Family planning for patient to return home without home care. Patient still has some mild wheezing and 2 doses of Solu-Medrol ordered. A new nebulizer machine will be ordered for home. Blood pressure 169/81, heart rate 68, pulse ox is 95% on room air, afebrile. Anticipate she will be ready for discharge home tomorrow. Recheck sodium in the morning. Objective - Vital Signs Vital signs: Vital Signs Temp 97.6 F 03/12/19 05:30 Pulse 72 03/12/19 08:37 Resp 18 03/12/19 05:30 BP 169/81 03/12/19 05:30 Pulse Ox 95 03/12/19 08:24 Intake & Output 03/11/19 03/12/19 03/12/19 18:59 06:59 18:59 Intake Total 470 717 577 Output Total 675 Balance -205 717 577 Intake: IV 40 0.9 NaCl 40 Oral 430 717 577 Output: Urine 675 Other: Voiding Method Indwelling Catheter Toilet Toilet # Voids 2 - Exam Review Of Systems: Constitutional: No fever, no chills, no night sweats. No weight change. Reports weakness. EENT: No headache. No blurred vision or double vision, no loss of vision. No loss of Hearing, no ringing in the ears, no dizziness. No nasal drainage or congestion. No epistaxis. No sore throat. Lungs: Reports shortness of breath improved, reports cough improved, no sputum production. Reports wheezing. Cardiovascular: Reports chest pain, no lower extremity edema. No palpitations. No paroxysmal nocturnal dyspnea. No orthopnea. No lightheadedness or dizzin ess. No syncopal episodes. Abdominal: No abdominal pain. No nausea, vomiting. No diarrhea. No co nstipation. No bloody or tarry stools.. No loss of appetite. Genitourinary: No dysuria, increased frequency, urgency. No urinary retention. Musculoskeletal: No myalgias. No muscle weakness, no gait dysfunction, no frequent falls. No back pain. No neck pain. Integumentary: No wounds, no lesions. No rash or pruritus. No unusual bruising. No change in hair or nails. Neurologic: No aphasia. No facial droop. No change in mentation. No head injury. No headache. No paralysis. No paresthesia. Psychiatric: No depression. No anxiety. No mood swings. Endocrine: No abnormal blood sugars. No weight change. No excessive sweating or thirst. No cold intolerance. Gen: This is an 78-year-old female. She is resting in chair and appears to be comfortable and in no acute distress. HEENT: Head is atraumatic, normocephalic. Pupils equal, round. Sclerae is anicteric. NECK: Supple. No JVD. No lymphadenopathy. No thyromegaly. LUNGS: Clear to auscultation. No intercostal retractions. HEART: Irregular rate and rhythm. No murmur. ABDOMEN: Soft. Bowel sounds are present. No masses. No tenderness. EXTREMITIES: No pedal edema. No calf tenderness. NEUROLOGICAL: Patient is awake, alert and oriented x3. Cranial nerves 2 through 12 are grossly intact. - Labs CBC & Chem 7: 03/11/19 04:36 03/12/19 09:44 Labs: Abnormal Lab Results - Last 24 Hours (Table) 03/11/19 Range/Units 14:19 Sodium 126 L (137-145) mmol/L Microbiology - Last 24 Hours (Table) 03/11/19 09:04 Gram Stain - Preliminary Sputum Sputum Culture - Preliminary Assessment and Plan Plan: 1. Acute hyponatremia, critical, improving. Patient is currently off IV fluids at 3% saline. Nephrology consult is appreciated. Continue to monitor electrolytes closely. 2. Seizure breakthrough likely secondary to #1. 3. Metabolic encephalopathy secondary to hyponatremia improved. 4. Severe dehydration. 5. Debility and weakness. 6. Chronic Atrial fibrillation. Continue eliquis, digoxin. 7. Hypertension. Continue losartan at 100 mg daily, avoid hydrochlorothiazide in the future. 8. GERD. Pepcid. 9. Asthma moderate persistent. 10. Generalized anxiety disorder. Continue Ativan as needed. 11. Acute asthma exacerbation, moderate persistent asthma possible right middle lobe pneumonia ruled out fever and atelectasis. Incentive spirometry added. Continue DuoNeb treatments 3 times daily scheduled and as needed, Pulmicort 0.5 mg twice daily, Solu-Medrol 2 doses. Discharge plan: To be determined. Consult with Dr. Linares for possible inpatient rehab. PT and OT recommended home with homecare, subacute rehab and 24-hour supervision. biodiesel product development manager to follow-up.. Impression and plan of care have been directed as dictated by the signing ph ysician. Marina Mock nurse practitioner acting as scribe for signing physician.
[2019-03-12] MEDS: methylPREDNISolone SOD SUCCI 40 MG/ML 1 ML VIAL IV SCH (15:45)
--- NOTE | 2019-03-12 20:32 | PN ---
PROGRESS NOTE Patient is seen for followup for hyponatremia. She has been transferred out of the ICU. Serum sodium continues to improve. The patient has been confused on and off. According to nursing staff she has been asking for large amounts of fluids. She is maintained on fluid restriction about 1200 mL. Sodium has been improving on its own just with fluid restriction. The patient has been also encouraged to increase her oral protein intake. On examination blood pressure this morning was 169/81. Patient is afebrile. She is euvolemic with no evidence of edema bilateral lower extremities. LAB: Show sodium 127, potassium 3.9, BUN 18, serum creatinine 0.5. ASSESSMENT: 1. Hyponatremia, appears to be euvolemic status post 3% saline. Currently, the serum sodium continues to improve with some degree of fluid restriction. 2. Seizure associated with hyponatremia. 3. History of atrial fibrillation with controlled ventricular response. PLAN: Maintain fluid restriction, encourage increased oral protein intake, I can liberalize the restriction to about 1500 mL and repeat labs in a.m.. MMLATRELLL / NICOLASN: [id number] /
[2019-03-13] MEDS: methylPREDNISolone SOD SUCCI 40 MG/ML 1 ML VIAL IV SCH (00:40)
[2019-03-13] MEDS: BUDESONIDE 0.5 MG/2 ML NEBU INHALATION SCH (07:20)
[2019-03-13] MEDS: IPRATROPIUM-ALBUTEROL 3 ML NEB INHALATION SCH ×2 (07:20→13:07)
[2019-03-13] MEDS: predniSONE 50 MG TAB PO SCH (08:18)
[2019-03-13] MEDS: LOSARTAN 50 MG TAB PO SCH (08:18)
[2019-03-13] MEDS: FAMOTIDINE 20 MG TAB PO SCH (08:18)
[2019-03-13] MEDS: APIXABAN 2.5 MG TABLET PO SCH (08:18)
[2019-03-13] MEDS: DIGOXIN 125 MCG TAB PO SCH (08:19)
[2019-03-13 12:15] VITALS: BP 149/84; TEMP 97.7
--- NOTE | 2019-03-13 13:13 | PN ---
PROGRESS NOTE Patient is seen for followup for hyponatremia. Currently, patient is maintained on fluid restriction. His serum sodium continues to improve significantly. It is up to 131 today. PHYSICAL EXAMINATION: On examination, blood pressure this morning was 168/93. The patient is afebrile. Heart rate is 72 per minute. EXAMINATION OF THE HEART: S1, S2. EXAMINATION OF THE LUNGS: Bilateral breath sounds are heard. Abdomen is soft, nontender. Examination of lower extremities shows no evidence of edema. LABS: Labs show sodium 131 today. ASSESSMENT: 1. Hyponatremia, symptomatic with seizures at the time of admission, status post 3% saline. The serum sodium continues to improve now with fluid restriction. Patient is also encouraged to increase her oral protein intake. 2. A symptomatic seizure secondary to hyponatremia, currently resolved. 3. Atrial fibrillation, maintained on Eliquis. 4. Hypertension, maintained on Cozaar. PLAN: Continue to encourage increased protein intake. Maintain fluid restriction. Avoid diuretics. MMODL / IJN: [id number] /
[2019-03-13 13:21] VITALS: PULSE 78
--- NOTE | 2019-03-13 13:28 | P.PN ---
Subjective Progress Note Date: 03/13/19 Principal diagnosis: Acute hyponatremia, improving The patient is seen today 03/13/2019 in follow-up on the regular medical floor. She is currently awake and alert in no acute distress. Resting quite comfortably in bed. No seizure activity reported. Maintaining good O2 satur ations in the mid 90s on room air. She's been afebrile. Hemodynamically stable. Sputum culture is pending. Current sodium 131. DuoNeb inhalations, Pulmicort, oral prednisone. Oral antibiotics in the form of Levaquin. Anticoagulated with Eliquis. Objective - Vital Signs Vital signs: Vital Signs Temp 97.7 F 03/13/19 12:15 Pulse 76 03/13/19 13:08 Resp 18 03/13/19 12:15 BP 149/84 03/13/19 12:15 Pulse Ox 95 03/13/19 12:15 Intake & Output 03/12/19 03/13/19 03/13/19 18:59 06:59 18:59 Intake Total 1325 120 Balance 1325 120 Intake: Oral 1325 120 Other: Voiding Method Toilet Toilet Toilet # Voids 2 2 - Exam GENERAL EXAM: Alert, active, comfortable in no apparent distress. On room air. HEAD: Normocephalic/atraumatic. EYES: Normal reaction of pupils, equal size. Conjunctiva pink, sclera white. NOSE: Clear with pink turbinates. THROAT: No erythema or exudates. NECK: No masses, no JVD, no thyroid enlargement, no adenopathy. CHEST: No chest wall deformity. Symmetrical expansion. LUNGS: Equal air entry with a few scattered wheezes CVS: Regular rate and rhythm, normal S1 and S2, no gallops, no murmurs, no rubs ABDOMEN: Soft, nontender. No hepatosplenomegaly, normal bowel sounds, no guarding or rigidity. EXTREMITIES: No clubbing, no edema, no cyanosis, 2+ pulses and upper and lower extremities. MUSCULOSKELETAL: Muscle strength and tone normal. SPINE: No scoliosis or deformity SKIN: No rashes CENTRAL NERVOUS SYSTEM: No focal deficits, tone is normal in all 4 extremities. PSYCHIATRIC: Alert and oriented -3. Appropriate affect. Intact judgment and insight. - Labs CBC & Chem 7: 03/11/19 04:36 03/13/19 09:15 Labs: Abnormal Lab Results - Last 24 Hours (Table) 03/13/19 Range/Units 09:15 Sodium 131 L (137-145) mmol/L Assessment and Plan Assessment: Impression: 1 acute hyponatremia, symptomatic, treated with 3% hypertonic saline solution and the patient's sodium level is up 131 and the patient is stable for now without any altered mentation or seizure activity. The patient is on fluid restriction. 2 altered mentation secondary to above, improving 3 seizures secondary to above, inactive in stable 4 severe dehydration, improving 5 chronic atrial fibrillation rate is controlled for now, the patient a locomotive to coagulation with Eliquis 6 massive cardiomegaly mainly involving the right atrium and right ventricle. With signs of severe pulmonary hypertension with a PA pressure of around 53, probably related to underlying COPD. 7 hypertension 8 bronchial asthma/COPD with a component of exacerbation 9 acid reflux 10 severe debility secondary to above-mentioned comorbidities 11 right middle lobe atelectasis likely secondary to mucous plugs involving the right middle lobe bronchus. Plan: The patient was seen and evaluated by Dr. Walters. She is currently stable from the pulmonary and critical care standpoint. Continue with her current medications. Sodium level improving. Currently 131. We will see the patient on as-needed basis. I, the cosigning physician, performed a history & physical examination of the patient. Lungs sounds clear. Maintaining good O2 saturations in the 90s on room air. I discussed the assessment and plan of care with my nurse practitioner, Nathalie Quiroga. I attest to the above note as dictated by her.are clear.
[2019-03-13] MEDS: LEVOFLOXACIN 500 MG TAB PO SCH (13:30)
[2019-03-13] MEDS ORDERED: amLODIPine 5 MG TAB PO STA (14:02)
[2019-03-14] MEDS ORDERED: amLODIPine 5 MG TAB PO SCH (09:00)
--- NOTE | 2019-03-14 09:23 | P.DS ---
Providers Date of admission: 03/09/19 05:12 Expected date of discharge: 03/13/19 Attending physician: Johnny Arango Consults: 03/09/19 05:12 Consult Physician Stat Consulting Provider: Candelario Pinto Consult Reason/Comments: ICU management Do you want consulting provider notified?: Already Contacted Consult Physician Stat Consulting Provider: Donte Carson Consult Reason/Comments: hyponatremia Do you want consulting provider notified?: Already Contacted 03/11/19 13:40 Consult Physician Routine Consulting Provider: Trino Linares Consult Reason/Comments: inpatient rehab Do you want consulting provider notified?: Yes Primary care physician: [facility] Course: This is 78 years old female who presented to the emergency department for altered mental status. Patient had dental workup on Sunday and was discharged with penicillin and narcotic prescription for pain control patient started being lethargic and refusing meals and became extremely dehydrated and on Sunday morning her decided to bring her into [place] emergency department where patient was found to have sodium of 111 and patient was started on normal saline that caused her sodium dropped to 108 patient during evaluation there looked witnessed tonic-clonic seizure with jerking movements but no bowel or bladder incontinence according to the patient was still lethargic and confused and had a son who was not there but was informed by his father who brought her into the emergency department. Patient currently is slightly confused in the intensive care unit still with low appetite but following commands and answering questions appropriately with yes or no. Patient was started on 3% infusion and placed in the intensive care unit and nephrology consult was obtained along with critical care consult sodium slightly improved currently at 111 and patient seems to be stable. Patient is denying any pain at this point 03/10: Overnight, patient's sodium gradually improved and this morning is at 121, potassium 3.9, chloride 90 and CO2 24, BUN 18 creatinine 0.41. Digoxin level came back at 0.4. Calcium 7.7. Chest x-ray this morning shows marked cardiomegaly. Recommend echocardiogram to assess for pericardial effusion. COPD. Minimal left basilar atelectasis. Patient is currently on IV fluids of 0.9 normal saline at 10 mL per hour. Patient is status post potassium replacement. She has had adequate urine output. This morning she is complaining of some cough and chest pain with history of asthma. She complains of feeling tired. We have added in Solu-Medrol, resumed Pulmicort, repeat chest x-ray tomorrow and modified barium swallow. Echocardiogram ordered. Initial AST and bilirubin elevated on admission. We will ask for fraction bilirubin and hepatitis panel. Digoxin will be resumed his heart rate is starting to run higher. 03/11: Sodium this morning was 124, potassium 4.2, chloride 93, CO2 24. Acute hepatitis panel was negative. Fractionated bilirubin revealed total bilirubin 3.7, conjugated 0, unconjugated 3.1, delta 0.6. TSH was 1.720. Echocardiogram reveals EF of 60-65%, moderate concentric left ventricular hypertrophy, moderate aortic regurgitation, mild mitral regurgitation, cannot exclude mitral valve prolapse. Severe tricuspid regurgitation, moderate pulmonary hypertension, aortic root dilated at 3.8 cm, trivial pericardial effusion. Repeat chest x-ray shows new right middle lobe opacities suspected unifocal pneumonia. Stable marked cardiomegaly and sequela of COPD. CAT scan of the chest revealed multifocal faint areas of edema and/or infiltrate bilaterally not well seen on x-ray. Right middle lobe consolidation favors atelectasis from obstructing mucous plug over acute infiltrate. Cardiomegaly with severe right atrial dilatation and evidence of right heart failure. Ascending aortic aneurysm up to 4.3 cm in diameter. Modified barium swallow was negative and patient had no signs of aspiration. Patient is status post 2 doses of IV steroids and will transition to oral prednisone for tomorrow. Incentive spirometry ordered. Patient states that her breathing is much improved from yesterday. Dr. Rainey co ntinues to follow and recommending increasing her oral intake, currently off IV fluids. Speech evaluated the patient yesterday and patient passed bedside swallow but we still plan to pursue modified barium swallow. The patient has been seen by Dr. Walters this morning cleared for transfer to [facility] floor with telemetry. We will add in consult with Dr. Linares for possible inpatient rehab. 03/12: Patient is now seen on the [facility] floor. Repeat lab work this morning reveals sodium of 127, potassium 3.9, chloride 92, CO2 29, BUN 18 and creatinine 0.5. Blood sugar 135. PT has evaluated and recommended home with homecare subacute rehab with 24-hour supervision. clinical marketing manager is following up with discharge plan. Patient was seen by Dr. Linares. Family planning for patient to return home without home care. Patient still has some mild wheezing and 2 doses of Solu-Medrol ordered. A new nebulizer machine will be ordered for home. Blood pressure 169/81, heart rate 68, pulse ox is 95% on room air, afebrile. Anticipate she will be ready for discharge home tomorrow. Recheck sodium in the morning. 03/13: Repeat sodium is 131. Family met with case management and high school social studies tutor discharge plan will be home with [facility]. Patient remains afebrile, heart rate 74, monitoring coordinator atrial fibrillation with controlled rate, blood pressure 160/93, pulse ox 96% on room air. Family has been advised for no hydrochlorothiazide in the future. Patient will be discharged home today in stable condition. Discharge diagnoses: 1. Acute hyponatremia, critical, improved. 2. Seizure breakthrough likely secondary to #1. 3. Metabolic encephalopathy secondary to hyponatremia improved. 4. Severe dehydration. 5. Debility and weakness. 6. Chronic Atrial fibrillation. 7. Hypertension. 8. GERD. Pepcid. 9. Asthma moderate persistent. 10. Generalized anxiety disorder. 11. Acute asthma exacerbation, moderate persistent asthma with right middle lob e atelectasis secondary to mucous plugs, possible right middle lobe pneumonia ruled out. 12. Cardiomegaly with severe pulmonary hypertension and PA pressure of 53. 13. Valvular heart disease with severe tricuspid regurgitation, moderate aortic regurgitation, mild mitral regurgitation. Discharge plan: Home with [facility] Impression and plan of care have been directed as dictated by the signing physician. Marina Mock nurse practitioner acting as scribe for signing physician. Patient Condition at Discharge: Good Plan - Discharge Summary Discharge Rx Participant: No New Discharge Prescriptions: New Losartan [Cozaar] 100 mg PO DAILY #30 tab Levofloxacin [Levaquin] 500 mg PO DAILY@1200 #3 tab amLODIPine [Norvasc] 5 mg PO HS #30 tab Famotidine [Pepcid] 20 mg PO DAILY #30 tab predniSONE 0 mg PO DIRECTED #16 tab Continue Digoxin [Lanoxin] 125 mcg PO DAILY Budesonide [Pulmicort] 0.5 mg INHALATION RT-BID Apixaban [Eliquis] 2.5 mg PO BID Ipratropium-Albuterol Nebulize [Duoneb 0.5 mg-3 mg/3 ml Soln] 3 ml INHALATION RT-BID Discontinued Losartan-Hctz 50-12.5 mg [Hyzaar 50-12.5] 1 tab PO DAILY Penicillin V Potassium [Pen Vee K] 500 mg PO QID Discharge Medication List Apixaban [Eliquis] 2.5 mg PO BID 03/09/19 [History] Budesonide [Pulmicort] 0.5 mg INHALATION RT-BID 03/09/19 [History] Digoxin [Lanoxin] 125 mcg PO DAILY 03/09/19 [History] Ipratropium-Albuterol Nebulize [Duoneb 0.5 mg-3 mg/3 ml Soln] 3 ml INHALATION RT-BID 03/09/19 [History] Famotidine [Pepcid] 20 mg PO DAILY #30 tab 03/13/19 [Rx] Levofloxacin [Levaquin] 500 mg PO DAILY@1200 #3 tab 03/13/19 [Rx] Losartan [Cozaar] 100 mg PO DAILY #30 tab 03/13/19 [Rx] amLODIPine [Norvasc] 5 mg PO HS #30 tab 03/13/19 [Rx] predniSONE 0 mg PO DIRECTED #16 tab 03/13/19 [Rx] Follow up Appointment(s)/Referral(s): [facility], [NON-STAFF] - 1 Week Derek Burnette MD [Primary Care Provider] - 03/20/19 11:30 am Ambulatory/Diagnostic Orders: Basic Metabolic Panel [LAB.AMB] Location: None Selected Patient Instructions/Handouts: Hyponatremia (DC), Fluid Restriction (DC) Activity/Diet/Wound Care/Special Instructions: pt will be sent home with a nebulizer s/t COPD 1500 fluid restriction daily Discharge Disposition: HOME WITH HOME HEALTH SERVICES
== END 2019-03-13 16:39 | disposition home health service (06) | DRG 640 ==
LOC: EC 00:12 → 2SICU 05:12 → 3NMEDONC 03-11 18:54
PROVIDERS: ADMIT Internal Medicine; ATTEND Internal Medicine
DX: E87.1 Hypo-osmolality and hyponatremia (principal); G93.41 Metabolic encephalopathy; G40.89 Other seizures; J45.41 Moderate persistent asthma with (acute) exacerbation; E87.2 Acidosis; E86.0 Dehydration; Z66 Do not resuscitate; E87.6 Hypokalemia; F41.1 Generalized anxiety disorder; I11.0 Hypertensive heart disease with heart failure; I50.810 Right heart failure, unspecified; I48.2 Chronic atrial fibrillation; K21.9 Gastro-esophageal reflux disease without esophagitis; M19.90 Unspecified osteoarthritis, unspecified site; R53.81 Other malaise; I08.3 Combined rheumatic disorders of mitral, aortic and tricuspid valves; R26.9 Unspecified abnormalities of gait and mobility; I27.29 Other secondary pulmonary hypertension; I71.2 Thoracic aortic aneurysm, without rupture; J44.9 Chronic obstructive pulmonary disease, unspecified; J98.09 Other diseases of bronchus, not elsewhere classified; E80.6 Other disorders of bilirubin metabolism; Z79.01 Long term (current) use of anticoagulants; Z79.899 Other long term (current) drug therapy; Z82.3 Family history of stroke; Z82.49 Family history of ischemic heart disease and other diseases of the circulatory system; Z87.891 Personal history of nicotine dependence; Z79.51 Long term (current) use of inhaled steroids
CPT/HCPCS: 36415; 71045; 71046; 71260; 74230; 80048; 80053; 80074; 80162; 82248; 83605; 83735; 83930; 83935; 84100; 84132; 84295; 84300; 84443; 84550; 85025; 85027; 87070; 87205; 93306; 94640; 94760; 99291